=== PATIENT | female | born 1940 | race Caucasian/White ===

== ENCOUNTER 2019-02-24 13:53 | Inpatient (IN) | payer OTHER, MEDICAID ==
[~2019-02-24] VITALS: Ht 165.1 cm; Wt 63.5 kg
[2019-02-24 14:29] VITALS: BP 126/96
[2019-02-24] MEDS ORDERED: MEMA5TAB PO (14:38)
[2019-02-24] MEDS ORDERED: LISI30TA6 PO (14:38)
[2019-02-24] MEDS ORDERED: ASPI-1718 PO (14:38)
[2019-02-24] MEDS ORDERED: SERT25TA PO (14:38)
[2019-02-24] MEDS ORDERED: LEVO0.133 PO (14:38)
[2019-02-24] MEDS ORDERED: OLAN2.5T1 PO ×2 (14:38)
[2019-02-24] MEDS ORDERED: DONE5TAB6 PO (14:38)
[2019-02-24] MEDS ORDERED: OLANZapine 5 MG ODT SL ONE (15:10)
[2019-02-24 15:47] LABS: BASOPHILS % (AUTO) 0.8 % (0.0-2.0); EOSINOPHILS # (AUTO) 0.1 K/uL (0-0.4); EOSINOPHILS % (AUTO) 1.6 % (0.0-4.0); HEMATOCRIT 37.8 % (36-48); HEMOGLOBIN 12.6 g/dL (12.0-16.0); LYMPHOCYTES # (AUTO) 1.4 K/uL (2.5-16.5); LYMPHOCYTES % (AUTO) 21.2 % (20.5-51.1); MEAN CORPUSCULAR HEMOGLOBIN 30 pg (27-31); MEAN CORPUSCULAR HGB CONC 33 g/dL (33-37); MEAN CORPUSCULAR VOLUME 88.6 fL (80-94); MONOCYTES # (AUTO) 0.4 K/uL (0.8-1.0); MONOCYTES % (AUTO) 6.6 % (1.7-9.3); NEUTROPHILS # (AUTO) 4.5 K/uL (1.8-7.7); NEUTROPHILS % (AUTO) 69.8 % (42.2-75.2); PLATELET COUNT (AUTO) 197 K/uL (140-450); RED BLOOD CELL COUNT(AUTO) 4.27 MIL/uL (4.20-5.40); RED CELL DISTRIBUTION WIDTH 14.4 % (11.6-13.7); WHITE BLOOD COUNT (AUTO) 6.4 K/uL (4.8-10.8)
[2019-02-24 16:02] LABS: ANION GAP 14.3 (8-16); CARBON DIOXIDE 25.3 mmol/L (21-32); CHLORIDE 105 mmol/L (98-107); CREATININE 0.8 mg/dL (0.6-1.3); GLUCOSE 92 mg/dL (74-106); POTASSIUM 3.6 mmol/L (3.5-5.1); SODIUM SERUM 141 mmol/L (136-145); UREA NITROGEN, BLOOD 17 mg/dL (7-18)
[2019-02-24 16:08] LABS: ALBUMIN 3.7 g/dL (3.4-5.0); ASPARTATE AMINOTRANSFERASE 10 U/L (15-37); TOTAL BILIRUBIN 0.5 mg/dL (0.0-1.0)
[2019-02-24 16:30] LABS: APPEARANCE,URINE CLEAR (CLEAR); BILIRUBIN,URINE NEGATIVE (NEGATIVE); BLOOD, URINE 1+ (NEGATIVE); COLOR,URINE YELLOW (YELLOW); LEUKOCYTE ESTERASE ,URINE NEGATIVE (NEGATIVE); NITRITE, URINE NEGATIVE (NEGATIVE); PH,URINE 5.5 (5.0-9.0); UGLUCOSE NEGATIVE (NEGATIVE)
[2019-02-24 16:38] LABS: RBC,URINE 0-5 /HPF (0-5); WBC,URINE 0-5 /HPF (0-5)
[2019-02-24] MEDS: NACL 0.9% 1,000 ML IV SCH (17:06)
[2019-02-24] MEDS ORDERED: ONDANSETRON 4 MG/2 ML VIAL IVP PRN (17:10)
[2019-02-24] MEDS ORDERED: ACETAMINOPHEN 325 MG TAB PO PRN (17:10)
[2019-02-24] MEDS ORDERED: MELATONIN 3 MG TAB PO PRN (17:10)
[2019-02-24] MEDS ORDERED: MEDICATION REC. PHARMACY CONS. 1 EA MISC MC PRN (17:10)
[2019-02-24] MEDS ORDERED: HYDROcodone/APAP 7.5/325 MG 1 TAB PO PRN (17:10)
[2019-02-24 18:59] LABS: BARBITURATE, URINE NEG. ng/ml (NEG <=200); BENZODIAZEPINE, URINE NEG. ng/mL (NEG <=200); CANNABINOID, URINE NEG. ng/mL (NEG <=50); COCAINE, URINE NEG. ng/mL (NEG <=300); OPIATE, URINE NEG. ng/mL (NEG <=2000); PHENCYCLIDINE SCREEN,URINE NEG. ng/mL (NEG <=25)
[2019-02-24 19:15] VITALS: BP 137/47
[2019-02-24 19:30] LABS: PROTHROMBIN TIME 10.4 secs (10.8-13.4)
[2019-02-24 19:42] LABS: FREE T4 (FREE THYROXINE) 1.31 ng/dL (0.76-1.46); PHOSPHORUS 3.9 mg/dL (2.5-4.9); THYROID STIMULATING HORMONE 5.1 uIU/mL (0.34-3.74)
[2019-02-24] MEDS: DOCUSATE SODIUM 100 MG GELCAP PO SCH (21:10)
[2019-02-24] MEDS: MEMANTINE 10 MG TAB PO SCH (21:10)
[2019-02-24] MEDS: DONEPEZIL 10 MG TAB PO SCH (21:10)
[2019-02-24] MEDS: OLANZapine 2.5 MG TAB PO SCH (21:11)
[2019-02-25 00:25] VITALS: BP 135/65
[2019-02-25] MEDS: LEVOTHYROXINE 0.025 MG TAB PO SCH (06:26)
[2019-02-25] MEDS: LEVOTHYROXINE 0.112 MG TAB PO SCH (06:26)
[2019-02-25 06:34] LABS: BASOPHILS # (AUTO) 0.1 K/uL (0.00-0.22); EOSINOPHILS # (AUTO) 0.2 K/uL (0-0.4); EOSINOPHILS % (AUTO) 3.7 % (0.0-4.0); HEMATOCRIT 35.5 % (36-48); HEMOGLOBIN 11.8 g/dL (12.0-16.0); LYMPHOCYTES # (AUTO) 1.4 K/uL (2.5-16.5); LYMPHOCYTES % (AUTO) 28.6 % (20.5-51.1); MEAN CORPUSCULAR HEMOGLOBIN 30 pg (27-31); MEAN CORPUSCULAR HGB CONC 33 g/dL (33-37); MEAN CORPUSCULAR VOLUME 88.8 fL (80-94); MONOCYTES # (AUTO) 0.4 K/uL (0.8-1.0); NEUTROPHILS # (AUTO) 2.9 K/uL (1.8-7.7); NEUTROPHILS % (AUTO) 57.7 % (42.2-75.2); PLATELET COUNT (AUTO) 179 K/uL (140-450); RED CELL DISTRIBUTION WIDTH 14.4 % (11.6-13.7)
[2019-02-25 06:50] LABS: ANION GAP 13.2 (8-16); CARBON DIOXIDE 23.5 mmol/L (21-32); CHLORIDE 108 mmol/L (98-107); CREATININE 0.7 mg/dL (0.6-1.3); GLUCOSE 91 mg/dL (74-106); POTASSIUM 3.7 mmol/L (3.5-5.1); SODIUM SERUM 141 mmol/L (136-145); UREA NITROGEN, BLOOD 25 mg/dL (7-18)
[2019-02-25 06:56] LABS: MAGNESIUM 2.1 mg/dL (1.8-2.4); PHOSPHORUS 4.4 mg/dL (2.5-4.9)
[2019-02-25 08:00] VITALS: BP 125/41
[2019-02-25] MEDS ORDERED: LEVOTHYROXINE SODIUM PO SCH (09:00)
[2019-02-25] MEDS: LISINOPRIL 10 MG TAB PO SCH (09:00)
[2019-02-25] MEDS: DOCUSATE SODIUM 100 MG GELCAP PO SCH ×2 (09:15→21:45)
[2019-02-25] MEDS: OLANZapine 2.5 MG TAB PO SCH ×2 (09:15→21:45)
[2019-02-25] MEDS: FAMOTIDINE 20 MG TAB PO SCH (09:15)
[2019-02-25] MEDS: SERTRALINE 50 MG TAB PO SCH (09:15)
[2019-02-25] MEDS: ASPIRIN 81 MG TAB.CHEW PO SCH (09:15)
[2019-02-25] MEDS: MEMANTINE 10 MG TAB PO SCH ×2 (09:15→21:45)
[2019-02-25 09:41] LABS: CHOL/HDL RATIO 5.2 (1-4.5)
[2019-02-25 12:00] VITALS: BP 127/64
[2019-02-25] MEDS: NACL 0.9% 1,000 ML IV SCH (13:21)
[2019-02-25] MEDS ORDERED: ALBUTEROL SULFATE/IPRATROPIU 3 ML SOL IH PRN (14:50)
[2019-02-25 16:00] VITALS: BP 151/45
[2019-02-25 20:00] VITALS: BP 136/62
[2019-02-25] MEDS: DONEPEZIL 10 MG TAB PO SCH (21:46)
[2019-02-26] MEDS: LORazepam 0.5 MG TAB PO PRN ×2 (01:43→09:00)
[2019-02-26 04:00] VITALS: BP 130/55
[2019-02-26] MEDS: LEVOTHYROXINE 0.025 MG TAB PO SCH (06:34)
[2019-02-26] MEDS: LEVOTHYROXINE 0.112 MG TAB PO SCH (06:34)
[2019-02-26 06:41] LABS: BASOPHILS # (AUTO) 0.1 K/uL (0.00-0.22); BASOPHILS % (AUTO) 1.1 % (0.0-2.0); EOSINOPHILS # (AUTO) 0.2 K/uL (0-0.4); EOSINOPHILS % (AUTO) 3.6 % (0.0-4.0); HEMATOCRIT 35.6 % (36-48); HEMOGLOBIN 11.8 g/dL (12.0-16.0); LYMPHOCYTES # (AUTO) 1.3 K/uL (2.5-16.5); LYMPHOCYTES % (AUTO) 27.2 % (20.5-51.1); MEAN CORPUSCULAR HEMOGLOBIN 30 pg (27-31); MEAN CORPUSCULAR HGB CONC 33 g/dL (33-37); MEAN CORPUSCULAR VOLUME 89.3 fL (80-94); MONOCYTES # (AUTO) 0.5 K/uL (0.8-1.0); MONOCYTES % (AUTO) 10.4 % (1.7-9.3); NEUTROPHILS # (AUTO) 2.7 K/uL (1.8-7.7); NEUTROPHILS % (AUTO) 57.7 % (42.2-75.2); PLATELET COUNT (AUTO) 163 K/uL (140-450); RED BLOOD CELL COUNT(AUTO) 3.98 MIL/uL (4.20-5.40); RED CELL DISTRIBUTION WIDTH 14.5 % (11.6-13.7); WHITE BLOOD COUNT (AUTO) 4.7 K/uL (4.8-10.8)
[2019-02-26 08:00] VITALS: BP 139/55
[2019-02-26 08:02] LABS: ANION GAP 12.3 (8-16); CARBON DIOXIDE 27.5 mmol/L (21-32); CHLORIDE 106 mmol/L (98-107); CREATININE 0.7 mg/dL (0.6-1.3); GLUCOSE 97 mg/dL (74-106); POTASSIUM 3.8 mmol/L (3.5-5.1); SODIUM SERUM 142 mmol/L (136-145); UREA NITROGEN, BLOOD 18 mg/dL (7-18)
[2019-02-26] MEDS: MEMANTINE 10 MG TAB PO SCH (08:59)
[2019-02-26] MEDS ORDERED: ATORVASTATIN 20 MG TAB PO SCH (09:00)
[2019-02-26] MEDS: LISINOPRIL 10 MG TAB PO SCH (09:00)
[2019-02-26] MEDS: OLANZapine 2.5 MG TAB PO SCH (09:01)
[2019-02-26] MEDS: SERTRALINE 50 MG TAB PO SCH (09:02)
[2019-02-26] MEDS: ASPIRIN 81 MG TAB.CHEW PO SCH (09:02)
[2019-02-26] MEDS: DOCUSATE SODIUM 100 MG GELCAP PO SCH (09:04)
[2019-02-26] MEDS: FAMOTIDINE 20 MG TAB PO SCH (09:04)
[2019-02-26] MEDS ORDERED: FAMO-90 PO (13:13)
[2019-02-26] MEDS ORDERED: ATOR20TA PO (13:13)
[2019-02-26] MEDS ORDERED: MELA5TAB6 PO (13:13)
[2019-02-26] MEDS ORDERED: LISI30TA6 PO (13:13)
[2019-02-26] MEDS ORDERED: ALBU3SOL83 IH (13:18)
== END 2019-02-26 16:49 | DRG 640 ==
LOC: MED 13:53 → MTU 17:41
PROVIDERS: ADMIT General Practice; ATTEND General Practice
DX: E86.0 Dehydration (principal); G93.41 Metabolic encephalopathy; J43.9 Emphysema, unspecified; F31.9 Bipolar disorder, unspecified; G30.9 Alzheimer's disease, unspecified; F02.80 Dementia in other diseases classified elsewhere, unspecified severity, without behavioral disturbance, psychotic disturbance, mood disturbance, and anxiety; F20.9 Schizophrenia, unspecified; I10 Essential (primary) hypertension; E89.0 Postprocedural hypothyroidism; F17.210 Nicotine dependence, cigarettes, uncomplicated; E78.5 Hyperlipidemia, unspecified; Z90.710 Acquired absence of both cervix and uterus
CPT/HCPCS: 36415; 51702; 70450; 71045; 71250; 80048; 80053; 80305; 81001; 82140; 83036; 83735; 83880; 84100; 84439; 84443; 84484; 85025; 85610; 85730; 87081; 97110; 97116; 97161-GP; 97530; 99285; J1644; J7030; Q0092

== ENCOUNTER 2019-08-10 19:54 | Inpatient (IN) | payer OTHER, MEDICAID ==
[~2019-08-10] VITALS: Ht 157.5 cm; Wt 67.1 kg
[~2019-08-10 19:54] MED LIST: ALBU3SOL83 IH; ASPI-1822 PO; ATOR20TA PO; DONE5TAB6 PO; FAMO-90 PO; LEVO0.133 PO; LISI30TA6 PO; MELA5TAB6 PO; MEMA5TAB PO; OLAN2.5T1 PO; SERT25TA PO
--- NOTE | 2019-08-10 19:56 | NUR ---
PT CODY BLS. TAKEN TO BED 8
[2019-08-10 19:59] VITALS: BP 168/110
[2019-08-10] MEDS ORDERED: ACET-2619 PO (20:10)
[2019-08-10] MEDS ORDERED: CETI10TA71 PO (20:10)
--- NOTE | 2019-08-10 20:23 | NUR ---
Dr. Urrutia examining patient.
[2019-08-10] MEDS ORDERED: ONDANSETRON 4 MG/2 ML VIAL IVP ONE ×2 (20:25→22:30)
[2019-08-10] MEDS ORDERED: MORPHINE SULFATE 2 MG/ML SYR IVP ONE (20:25)
--- NOTE | 2019-08-10 20:29 | NUR ---
XR AT BEDSIDE.
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
[2019-08-10 21:17] LABS: BASOPHILS # (AUTO) 0.1 K/uL (0.00-0.22); BASOPHILS % (AUTO) 1.2 % (0.0-2.0); EOSINOPHILS # (AUTO) 0.2 K/uL (0-0.4); EOSINOPHILS % (AUTO) 3.2 % (0.0-4.0); HEMATOCRIT 36.2 % (36-48); HEMOGLOBIN 12.1 g/dL (12.0-16.0); LYMPHOCYTES # (AUTO) 0.9 K/uL (2.5-16.5); LYMPHOCYTES % (AUTO) 15.2 % (20.5-51.1); MEAN CORPUSCULAR HEMOGLOBIN 30 pg (27-31); MEAN CORPUSCULAR HGB CONC 33 g/dL (33-37); MEAN CORPUSCULAR VOLUME 88.7 fL (80-94); MONOCYTES # (AUTO) 0.4 K/uL (0.8-1.0); MONOCYTES % (AUTO) 6.9 % (1.7-9.3); NEUTROPHILS # (AUTO) 4.3 K/uL (1.8-7.7); NEUTROPHILS % (AUTO) 73.5 % (42.2-75.2); PLATELET COUNT (AUTO) 189 K/uL (140-450); RED BLOOD CELL COUNT(AUTO) 4.08 MIL/uL (4.20-5.40); RED CELL DISTRIBUTION WIDTH 14.4 % (11.6-13.7); WHITE BLOOD COUNT (AUTO) 5.8 K/uL (4.8-10.8)
[2019-08-10 21:24] LABS: ANION GAP 11.8 (8-16); CARBON DIOXIDE 27.1 mmol/L (21-32); CHLORIDE 107 mmol/L (98-107); CREATININE 0.7 mg/dL (0.6-1.3); GLUCOSE 113 mg/dL (74-106); POTASSIUM 3.9 mmol/L (3.5-5.1); SODIUM SERUM 142 mmol/L (136-145); UREA NITROGEN, BLOOD 25 mg/dL (7-18)
[2019-08-10] MEDS ORDERED: MORPHINE SULFATE 4 MG/ML SYR IVP ONE (22:30)
[2019-08-10] MEDS ORDERED: ONDANSETRON 4 MG/2 ML VIAL IM/IVP PRN (22:45)
[2019-08-10] MEDS ORDERED: DOCUSATE SODIUM 100 MG GELCAP PO PRN (22:45)
[2019-08-10] MEDS ORDERED: ACETAMINOPHEN 325 MG TAB PO PRN (22:45)
--- NOTE | 2019-08-10 22:55 | NUR ---
Dr. Cee examining patient.
[2019-08-10] MEDS ORDERED: MORPHINE SULFATE 4 MG/ML SYR IVP PRN (23:30)
[2019-08-10] MEDS ORDERED: MECLIZINE 25 MG TAB PO PRN (23:45)
[2019-08-11] VITALS: BP 149/74
--- NOTE | 2019-08-11 | NUR ---
Patient will be admitted to care of DR. ALVAREZ. Admited to M/S. Will go to room 123A. Belongings list completed. Report to ESTELLE LANGFORD.
[2019-08-11 00:25] LABS: CHOL/HDL RATIO 4.1 (1-4.5); FREE T4 (FREE THYROXINE) 1.11 ng/dL (0.76-1.46); MAGNESIUM 2.1 mg/dL (1.8-2.4); PHOSPHORUS 3.3 mg/dL (2.5-4.9); THYROID STIMULATING HORMONE 3.59 uIU/mL (0.34-3.74)
[2019-08-11 00:59] LABS: APPEARANCE,URINE CLOUDY (CLEAR); BILIRUBIN,URINE NEGATIVE (NEGATIVE); BLOOD, URINE 2+ (NEGATIVE); COLOR,URINE YELLOW (YELLOW); LEUKOCYTE ESTERASE ,URINE NEGATIVE (NEGATIVE); NITRITE, URINE NEGATIVE (NEGATIVE); UGLUCOSE NEGATIVE (NEGATIVE)
--- NOTE | 2019-08-11 01:00 | NUR ---
PT WAS TURNED AND CHANGED IN BED NO S/S OF PAIN IR DISTRESS NOTED.
[2019-08-11 01:37] LABS: RBC,URINE 0-5 /HPF (0-5); WBC,URINE 0-5 /HPF (0-5)
--- NOTE | 2019-08-11 03:46 | NUR ---
PT BROUGHT DOWN TO RADIOLOGY FOR CT OF HEAD AND CT OF ABDOMEN AND PELVIS.
[2019-08-11] MEDS ORDERED: cefTRIAXone 1,000 MG VIAL ONE (05:06)
[2019-08-11] MEDS ORDERED: LEVOTHYROXINE 0.025 MG TAB ONE (05:08)
[2019-08-11] MEDS ORDERED: LEVOTHYROXINE 0.112 MG TAB ONE (05:09)
[2019-08-11] MEDS: DEXT 5% /NACL 0.9% 1,000 ML IV SCH ×3 (05:20→23:44)
[2019-08-11] MEDS: LEVOTHYROXINE 0.025 MG TAB PO SCH (05:23)
[2019-08-11] MEDS: LEVOTHYROXINE 0.112 MG TAB PO SCH (05:23)
[2019-08-11 06:15] LABS: ANION GAP 12.5 (8-16); CARBON DIOXIDE 29.3 mmol/L (21-32); CHLORIDE 107 mmol/L (98-107); CREATININE 0.7 mg/dL (0.6-1.3); GLUCOSE 129 mg/dL (74-106); POTASSIUM 3.8 mmol/L (3.5-5.1); SODIUM SERUM 145 mmol/L (136-145); UREA NITROGEN, BLOOD 23 mg/dL (7-18)
[2019-08-11] MEDS ORDERED: LEVOTHYROXINE 0.075 MG TAB PO SCH (06:30)
[2019-08-11] MEDS ORDERED: LEVOTHYROXINE 0.112 MG TAB PO SCH (06:30)
[2019-08-11 07:00] LABS: BASOPHILS % (AUTO) 0.5 % (0.0-2.0); EOSINOPHILS % (AUTO) 0.4 % (0.0-4.0); HEMATOCRIT 34.5 % (36-48); HEMOGLOBIN 11.7 g/dL (12.0-16.0); LYMPHOCYTES # (AUTO) 0.6 K/uL (2.5-16.5); LYMPHOCYTES % (AUTO) 5.5 % (20.5-51.1); MEAN CORPUSCULAR HEMOGLOBIN 30 pg (27-31); MEAN CORPUSCULAR HGB CONC 34 g/dL (33-37); MEAN CORPUSCULAR VOLUME 89.8 fL (80-94); MONOCYTES # (AUTO) 0.5 K/uL (0.8-1.0); MONOCYTES % (AUTO) 4.8 % (1.7-9.3); NEUTROPHILS % (AUTO) 88.8 % (42.2-75.2); PLATELET COUNT (AUTO) 171 K/uL (140-450); RED BLOOD CELL COUNT(AUTO) 3.84 MIL/uL (4.20-5.40); RED CELL DISTRIBUTION WIDTH 14.2 % (11.6-13.7); WHITE BLOOD COUNT (AUTO) 10.2 K/uL (4.8-10.8)
--- NOTE | 2019-08-11 07:23 | NUR ---
RECEIVED PATIENT FROM SOFTWARE EDUCATOR NURSE FOR CONTINUITY OF CARE. PATIENT IS ASLEEP. [place] SPEAKING. RESPIRATIONS EVEN AND UNLABORED, ROOM AIR. VISIBLE CHEST RISE NOTED. ON TELE MONITORING. ABDOMEN SOFT, ROUND, NONTENDER. SKIN WARM, DRY, AND INTACT. IV IN THE RIGHT AC G20, RUNNING D51.2NS AT 80 ML/HR. LEFT HAND, G22, SALINE LOCK. PATIENT IS INCONTINENT. RIGHT HIP FRACTURE. NPO EXCEPT MEDS AT THIS TIME. PATIENT IS BEDBOUND. STANDARD ISOLATION. BED IN LOW POSITION. CALL LIGHT IS WITHIN REACH. WILL CONTINUE TO MONITOR.
[2019-08-11 08:00] VITALS: BP 172/79
--- NOTE | 2019-08-11 08:22 | NUR ---
RECEIVED PT FROM ROSETTE ER NURSE AT BEDSIDE FOR CONTINUITY OF CARE, PT IN STABLE CONDITION. PT V/S FOLLOWS: T 98.7 P 18 R 18 B/P 149/74 02 97%. PT AOX1 ON ROOM AIR SHE HAS 2 IV SITES L HAND 22 G AND RIGHT HAND HAND 22G . PT HAS SKIN TEAR ON RIGHT ELBOW AND LEFT HAND. PT WAS GIVEN PAIN MEDS IN ER. REPORT GIVEN BY ROSETTE AT BEDSIDE.
[2019-08-11] MEDS: SERTRALINE 50 MG TAB PO SCH (09:14)
[2019-08-11] MEDS: LISINOPRIL 20 MG TAB PO SCH (09:16)
[2019-08-11] MEDS: MEMANTINE 10 MG TAB PO SCH ×2 (09:16→20:35)
[2019-08-11] MEDS: FAMOTIDINE 20 MG TAB PO SCH (09:17)
[2019-08-11] MEDS: OLANZapine 2.5 MG TAB PO SCH ×2 (09:18→20:36)
--- NOTE | 2019-08-11 09:18 | NUR ---
GIVEN MORNING MEDICATIONS PO. EXPLAINED TO PATIENT MEDS AND SIDE EFFECTS. PATIENT VERBALIZED UNDERSTANDING. BED IN LOW POSITION. CALL LIGHT IS WITHIN REACH. WILL CONTINUE TO MONITOR
[2019-08-11] MEDS ORDERED: BACITRACIN 50000 UNITS/1 VIAL ONE (09:52)
[2019-08-11] MEDS ORDERED: LIDOCAINE/EPI MPF 1%1:200000 30 ML VIAL INJ ONE (09:52)
--- NOTE | 2019-08-11 10:20 | NUR ---
PATIENT IS OFF TO OR FOR SURGERY ACCOMPANIED BY 2 OR NURSES.
[2019-08-11] MEDS ORDERED: DEXAMETHASONE 4 MG/ML VIAL ONE (10:30)
[2019-08-11] MEDS ORDERED: ONDANSETRON 4 MG/2 ML VIAL ONE (10:30)
[2019-08-11] MEDS ORDERED: GLYCOPYRROLATE 0.2 MG/ML VIAL ONE (10:30)
[2019-08-11] MEDS ORDERED: fentaNYL 0.05 MG/ML VIAL ONE (10:30)
[2019-08-11] MEDS ORDERED: ROCURONIUM 50 MG/5 ML VIAL IV ONE (10:30)
[2019-08-11] MEDS ORDERED: ePHEDrine 50 MG/ML VIAL ONE (10:30)
[2019-08-11] MEDS ORDERED: KETOROLAC 30 MG/ML VIAL ONE (10:30)
[2019-08-11] MEDS ORDERED: SEVOFLURANE 250 ML BTL INH ONE (10:30)
[2019-08-11] MEDS ORDERED: PROPOFOL 200 MG/20 ML VIAL IV ONE (10:30)
--- NOTE | 2019-08-11 13:07 | NUR ---
PATIENT HAS BEEN SCREENED AND CATEGORIZED MODERATE NUTRITION RISK. PATIENT WILL BE SEEN WITHIN 3-5 DAYS OF ADMISSION. 08/13/19 08/15/[address]
--- NOTE | 2019-08-11 13:50 | NUR ---
PT BACK FROM SURGERY.
--- NOTE | 2019-08-11 14:18 | NUR ---
GIVEN REPORT TO ESTELLE GARCIA, FOR CONTINUITY OF CARE.
--- NOTE | 2019-08-11 14:20 | NUR ---
RECEIVED PT FROM ESTELLE BRAUN, FOR CONTINUITY OF CARE. PT JUST HAD R TROCHANTERIC HIP NAILING SURGERY. VS CHECKED Q15 MINS. VS ARE STABLE. PT NOT C/O PAIN AT THIS TIME. R HIP IS DRESSED WITH A WHITE DRESSING, DRY AND INTACT.
--- NOTE | 2019-08-11 14:24 | NUR ---
DC [age] YRS OLD FEMALE PATIENT WAS ADMITTED FROM [facility], WITH A DX OF: S/P FALL , RT HIP FRACTURE . PT HAS A HX OF THYROID CA, HTN, GERD, DEMENTIA HYPOTHYROIDISM, AND SCHIZOPHRENIA. RT HIP XRAY SHOWED FRACTURE , ADMINISTERED PAIN CONTROLLED CONSULTED WITH ORTHOPEDIC DR SHIPMAN . PT IS HAVING SURGERY ORIF WITH DR SHIPMAN AT THIS TIME CM TO FOLLOW. Addendum: 08/16/19 at 1025 by Tasha Merrill CM 0830: RECEIVED AN ORDER FOR SNF EVAL FOR PT. CONTACTED DEEPALI MCGOVERN OF [employer] HOWEVER I WAS NOT ABLE TO LEAVE MESSAGE, VOICEMAIL WAS NOT SET UP. WILL FOLLOW UP. REFERRAL SENT TO [facility]AC[facility]. Addendum: 08/16/19 at 1026 by Tasha Merrill CM PER KEYLA ROBLES, THEY ARE ABLE TO TAKE THE PATIENT. CONTACTED DEEPALI MCGOVERN OF [employer], NO ANSWER. UNABLE TO LEAVE MESSAGE.. WILL FOLLOW UP. Addendum: 08/16/19 at 1030 by Tasha Merrill CM CONTACTED ADAN PATTERSON AT [phone] REGARDING DC PLAN, NO ANSWER. LEFT MESSAGE. Addendum: 08/16/19 at 1037 by Tasha Merrill RECEIVED A CALL FROM ADAN PATTERSON, PATIENT'S MEDICAL DECISION MAKER. INFORMED HIM OF THE DC PLAN AND IS IN AGREEMENT. I INFORMED HIM WELL, THAT I HAVE AN ACCEPTING FACILITY ALREADY AND THAT I AM JUST WAITING FOR A GO SIGNAL FROM THE INSURANCE. Addendum: 08/16/19 at 1330 by Tasha Merrill CM PER ARA COORDINATOR, DEEPALI MITTALIL IS NO LONGER WITH [employer]. SHE PROVIDED ME WITH DEEPALI GRANT'S CONTACT INFO [phone]. CONTACTED THE PROVIDED NUMBER, ABLE TO SPEAK TO DEEPALI GRANT AND SHE CONFIRMED THAT DEEPALI MCGOVERN IS NO LONGER WITH THE COMPANY. SHE STATED MAY USE AUTH NUMBER [id number] FOR BOTH TRANSPORT ([facility]) AND SNF. CONTACTED [facility] AT [phone] REGARDING VERBAL AUTH. SHE STATED PATIENT CAN GO TO ROOM 31C UNDER DR. GILLIS. CONTACTED [facility] [phone], ABLE TO SPEAK TO RICARDO. MODERN GREEK STUDIES PROFESSOR WILL BE AT 1830. PRIMARY RN JODIE, CHARGE NURSE AND DR. CURIEL MADE AWARE. CONTACTED PATIENT'S SON IN LAW ADAN PATTERSON AT [phone], NO ANSWER. LEFT MESSAGE. Addendum: 08/16/19 at 1344 by Tasha Merrill CM RECEIVED A CALL FROM PRIMARY RN JODIE, STATING THAT [facility] IS ABLE TO CALL HIM TO CHANGE THE MODERN GREEK STUDIES PROFESSOR TIME TO 1500. RECEIVED A CALL BACK FROM ADAN PATTERSON, INFORMED HIM THAT PATIENT WILL BE DISCHARGING TODAY TO [facility]. PROVIDED HIM WITH THE ROOM NUMBER, ADDRESS AND PHONE NUMBER OF [facility]. I ALSO INFORMED HIM OF THE MODERN GREEK STUDIES PROFESSOR TIME AND IS IN AGREEMENT. Addendum: 08/16/19 at 1351 by Tasha Merrill CM [facility] MADE AWARE OF PATIENT DISCHARGING TO [facility].
[2019-08-11 16:00] VITALS: BP 134/59
--- NOTE | 2019-08-11 16:21 | NUR ---
Mica Patcher Note: Basic Screen: Yes High Risk DC Screen Yes Name: CESAR PATTERSON Home Tel: FAMILY Relationship: [phone] Pre-Admission Living Arrangements: Other Other: [facility] Prior ADL Independent Current Home Health Name/Tel: N/A Current DME/02 Name/Tel: N/A Current Hospice Name/Tel: N/A Current Dialysis Name/Tel: N/A Healthcare Decision Maker: Patient Advance Directive No Physician Orders for Life Sustaining Treatment Form No Patient/Family Have Educational Needs No Teaching Tools: Verbal Participation Level: Active Needs Additional Education: No Discipline: Case Mgt/Social Svcs Other: [facility] Will require assistance post discharge: No Referred to [facility]: No Tentative Discharge Plan Summary: Patient is a 79-year-old female admitted for fall/right hip fracture. Patient has PMHX of alzheimer's, dementia, bipolar disorder, schizophrenia, HTN, hypohyroid, hypertension, hyperlipedemia, GERD, and hypothyroidism. Patient was admitted from [facility]. SW contacted Gwen Childs in admissions at [facility] [phone]. Per Gwen Childs, patient is ambulatory but requires assistance with all other ADLs. Patient is in memory care unit and is able to communicate, although she is not alert/oriented to place and time. Patient's healthcare decision maker is Cesar Patterson [phone]. Tentative discharge plan is for patient to return to [facility] when patient is medically stable. No further needs identified. Signature: SULTANA Timmons Date: Aug 12, 2019 Time: 09:05
--- NOTE | 2019-08-11 16:52 | NUR ---
BEDSIDE SWALLOW EVAL COMPLETED, PT WAS ABLE TO SWALLOW APPLE SAUCE AND THIN WATER WITHOUT ANY ISSUES.
--- NOTE | 2019-08-11 17:06 | NUR ---
PT ABLE TO URINATE A LARGE AMOUNT AFTER SURGERY, WITHOUT LUGO.
--- NOTE | 2019-08-11 18:30 | NUR ---
PT SLEEPING, DOES NOT WANT TO EAT DINNER AT THIS TIME.
--- NOTE | 2019-08-11 19:15 | NUR ---
PT ENDORSED TO ACCOUNTING SYSTEMS MANAGER IN STABLE CONDITION. R HIP SURGICAL DRESSING IS DRY AND INTACT.
--- NOTE | 2019-08-11 19:20 | NUR ---
RECEIVE DPT IN STABLE CONDITION FROM AM NURSE. PT IS ASLEEP. RESPIRATION EVEN AND UNLABORED. MED SURG PT. BEDREST. WITH NO S/S OF ANY DISCOMFORT /PAIN NOTED. S/P TROCHANTER HIP NAILING RIGHT, WITH LARGE DRESSING CLEAN AND DRY ON THE RT HIP. HAS IVF INFUSING WELL ON THE RT AC G#20. HL ON THE LT HAND G#22. BED ON LOW POSITION. FREQ ROUNDS NEEDED . CALL LIGHT PLACED WITHIN EASY REACH. WILL CONTINUE TO MONITOR.
[2019-08-11 20:00] VITALS: BP 127/44
[2019-08-11] MEDS: DONEPEZIL 10 MG TAB PO SCH (20:35)
[2019-08-11] MEDS ORDERED: CRUSHER, PILL MC ONE (20:37)
--- NOTE | 2019-08-11 21:00 | NUR ---
PT WAS TURNED TO LEFT SIDE WITH PILLOW SUPPORTING THE RT HIP.
--- NOTE | 2019-08-11 23:00 | NUR ---
PT IS ASLEEP. NO S/S OF ANY PAIN NOTED. WILL CONTINUE TO MONITOR.
[2019-08-12] VITALS: BP 116/68
--- NOTE | 2019-08-12 01:00 | NUR ---
PT REPOSITIONED FOR COMFORT. NO C/O ANY PAIN NOTED.
--- NOTE | 2019-08-12 03:30 | NUR ---
MADE ROUNDS. PT IS ASLEEP. NO S/S OF ANY DISCOMFORT NOR PAIN NOTED.
[2019-08-12] MEDS: DEXT 5% /NACL 0.9% 1,000 ML IV SCH ×2 (04:00→21:27)
--- NOTE | 2019-08-12 05:00 | NUR ---
MADE ROUNDS. PT SLEEPING. NO S/S OF PAIN NOTED.
[2019-08-12 06:11] LABS: T4 (THYROXINE) 7.2 ug/dL (4.5-12.0)
[2019-08-12 06:19] LABS: BASOPHILS % (AUTO) 0.3 % (0.0-2.0); EOSINOPHILS % (AUTO) 0.2 % (0.0-4.0); HEMATOCRIT 28.6 % (36-48); HEMOGLOBIN 9.6 g/dL (12.0-16.0); LYMPHOCYTES # (AUTO) 0.7 K/uL (2.5-16.5); LYMPHOCYTES % (AUTO) 8.7 % (20.5-51.1); MEAN CORPUSCULAR HEMOGLOBIN 30 pg (27-31); MEAN CORPUSCULAR HGB CONC 34 g/dL (33-37); MEAN CORPUSCULAR VOLUME 90.6 fL (80-94); MONOCYTES # (AUTO) 0.7 K/uL (0.8-1.0); MONOCYTES % (AUTO) 8.6 % (1.7-9.3); NEUTROPHILS # (AUTO) 6.4 K/uL (1.8-7.7); NEUTROPHILS % (AUTO) 82.2 % (42.2-75.2); PLATELET COUNT (AUTO) 138 K/uL (140-450); RED BLOOD CELL COUNT(AUTO) 3.15 MIL/uL (4.20-5.40); RED CELL DISTRIBUTION WIDTH 14.1 % (11.6-13.7); WHITE BLOOD COUNT (AUTO) 7.8 K/uL (4.8-10.8)
[2019-08-12 06:34] LABS: CARBON DIOXIDE 25.8 mmol/L (21-32); CHLORIDE 110 mmol/L (98-107); CREATININE 0.7 mg/dL (0.6-1.3); GLUCOSE 133 mg/dL (74-106); POTASSIUM 3.8 mmol/L (3.5-5.1); SODIUM SERUM 144 mmol/L (136-145); UREA NITROGEN, BLOOD 16 mg/dL (7-18)
[2019-08-12 06:43] LABS: MAGNESIUM 1.9 mg/dL (1.8-2.4); PHOSPHORUS 2.5 mg/dL (2.5-4.9)
[2019-08-12] MEDS: LEVOTHYROXINE 0.025 MG TAB PO SCH (06:47)
[2019-08-12] MEDS: LEVOTHYROXINE 0.112 MG TAB PO SCH (06:47)
[2019-08-12] MEDS: HYDROcodone/APAP 7.5/325 MG 1 TAB PO PRN ×3 (06:57→21:18)
--- NOTE | 2019-08-12 07:24 | NUR ---
ENDORSED PT IN STABLE CONDITION TO AM NURSE .
--- NOTE | 2019-08-12 07:25 | NUR ---
RECEIVED REPORT FROM NIGHT NURSE, PT TRYING TO GET OUT OF BED, RE-ORIENTED PT, PT VERBALIZED UNDERSTANDING, PT STABLE, INTRODUCE SELF, UPDATE WHITE BOARD, PT HAS RAC 20 G RUNNING D5NS AT 80ML/H, BED ALARM ON, SAFETY MEASURES IN PLACE, CALL LIGHT WITHIN REACH.
[2019-08-12 08:00] VITALS: BP 137/47
[2019-08-12] MEDS: OLANZapine 2.5 MG TAB PO SCH ×2 (08:58→21:06)
[2019-08-12] MEDS: SERTRALINE 50 MG TAB PO SCH (08:59)
[2019-08-12] MEDS: LISINOPRIL 20 MG TAB PO SCH (09:00)
[2019-08-12] MEDS: MEMANTINE 10 MG TAB PO SCH ×2 (09:01→21:06)
[2019-08-12] MEDS: FAMOTIDINE 20 MG TAB PO SCH (09:01)
--- NOTE | 2019-08-12 09:06 | NUR ---
GAVE PT ORDERED MEDICATION, EDUCATION GIVEN, PT VERBALIZED UNDERSTANDING, PT IS STABLE, CALL LIGHT WITHIN REACH.
[2019-08-12] MEDS ORDERED: CALCIUM CARB/VIT-D 500 MG/200 IU 1 TAB PO SCH (11:15)
--- NOTE | 2019-08-12 11:30 | NUR ---
PT PULLED OUT IV, PT RE-ORIENTED TO STAY IN BED, PT STABLE, BED ALARM ON, WILL CONTINUE TO MONITOR, CALL LIGHT WITHIN REACH.
--- NOTE | 2019-08-12 12:01 | NUR ---
GAVE PT KAREEM PT IS CRYING SAYING HER RIGHT HIP HURTS, EDUCATION GIVEN, PT TOLERATED MEDICATION WELL, CALL LIGHT WITHIN REACH, SAFETY MEASURES IN PLACE.
--- NOTE | 2019-08-12 13:00 | NUR ---
PT ASLEEP IN BED, NO SIGNS OF DISTRESS NOTED, WILL CONTINUE TO MONITOR, CALL LIGHT WITHIN REACH.
--- NOTE | 2019-08-12 13:52 | NUR ---
*S.T. BEDSIDE SWALLOW EVAL COMPLETED* See report. Pt presents w/ adequate oropharyngeal swallow for textures given. Pt is able to self-feed w/ minimal assistance. No overt s/s aspiration observed. Recommend: 1) Continue mechanical soft diet, thin liquids okay. Straws okay. 2) Nsg to assist w/ tray set up to promote self-feeding 3) P.O. meds okay whole, one at a time. No further tx indicated at this time as pt does not present w/ clinical dysphagia. DC to nsg care at this time. D/w pt results/recs; endorsed to ESTELLE Ren at bedside. Time [id number]
--- NOTE | 2019-08-12 14:40 | NUR ---
RE-ORIENTED PT TO PLACE AND TIME, PT ATTEMPTED TO GET OUT OF BED, BED ALARM ON, WILL CONTINUE ROUNDING ON PT.
--- NOTE | 2019-08-12 19:15 | NUR ---
GAVE REPORT TO NIGHT NURSE FOR CONTINUITY OF CARE, PT IS STABLE.
--- NOTE | 2019-08-12 19:16 | NUR ---
RECEIVED PT IN STABLE CONDITION FROM AM NURSE FOR CONTINUITY OF CARE. AWAKE,ALERT ,ORIENTED X2. BEDREST. WITH DRESSING ON THE RIGHT HIP ,CLEAN AND DRY. HAS IVF INFUSING WELL ON THE RT WRIST G#22. CLEAR AND PATENT. PLAN OF CARE DISCUSSED AND NEED REINFORCEMENT DUE TO CONFUSION. BEDREST. BED ALARM ON FREQ ROUNDS. PLATE FITTER AILS UP X2,CALL LIGHT PLACED WITHIN EASY REACH. WILL CONTINUE TO MONITOR.
[2019-08-12] MEDS: DONEPEZIL 10 MG TAB PO SCH (21:05)
--- NOTE | 2019-08-12 21:18 | NUR ---
PT TOOK ALL NIGHT MEDICATIONS. THEN C/I PAIN ON THE RT HIP. MEDICATED WITH NORCO . WILL CONTINUE TO MONITOR.
--- NOTE | 2019-08-12 23:55 | NUR ---
PT LT HAND WITH BRUISES AND SKIN TEAR THAT ALREADY HAS SOME SCABS FORMING. DR. GUZMAN RESIDENT , MADE AWARE AND CAME ,CHECKED ON PT. .HE SAID JUST CLEAN THE LT HAND WITH NS ,PAT DRY AND KEEP OPEN TO AIR.
[2019-08-13] VITALS: BP 124/42
--- NOTE | 2019-08-13 01:00 | NUR ---
MADE ROUNDS. PT ASLEEP. NO S/S OF ANY DISCOMFORT/PAIN NOTED.
--- NOTE | 2019-08-13 03:00 | NUR ---
PT ASLEEP. NO S/S OF ANY PAIN NOTED. WILL CONTINUE TO MONITOR.
--- NOTE | 2019-08-13 05:00 | NUR ---
PT HAS BEEN REPOSITIONED FOR COMFORT . RT HIP DRESSING CLEAN AND DRY. NO BLEEDING NOTED.
[2019-08-13] MEDS: LEVOTHYROXINE 0.112 MG TAB PO SCH (05:39)
[2019-08-13] MEDS: HYDROcodone/APAP 7.5/325 MG 1 TAB PO PRN (05:39)
[2019-08-13] MEDS: LEVOTHYROXINE 0.025 MG TAB PO SCH (05:39)
[2019-08-13 06:17] LABS: BASOPHILS # (AUTO) 0.1 K/uL (0.00-0.22); BASOPHILS % (AUTO) 0.9 % (0.0-2.0); EOSINOPHILS # (AUTO) 0.4 K/uL (0-0.4); EOSINOPHILS % (AUTO) 6.3 % (0.0-4.0); HEMATOCRIT 25.9 % (36-48); HEMOGLOBIN 8.8 g/dL (12.0-16.0); LYMPHOCYTES # (AUTO) 1.1 K/uL (2.5-16.5); LYMPHOCYTES % (AUTO) 17.2 % (20.5-51.1); MEAN CORPUSCULAR HEMOGLOBIN 31 pg (27-31); MEAN CORPUSCULAR HGB CONC 34 g/dL (33-37); MEAN CORPUSCULAR VOLUME 90.1 fL (80-94); MONOCYTES # (AUTO) 0.7 K/uL (0.8-1.0); NEUTROPHILS # (AUTO) 4.3 K/uL (1.8-7.7); NEUTROPHILS % (AUTO) 65.6 % (42.2-75.2); PLATELET COUNT (AUTO) 121 K/uL (140-450); RED BLOOD CELL COUNT(AUTO) 2.87 MIL/uL (4.20-5.40); RED CELL DISTRIBUTION WIDTH 14.2 % (11.6-13.7); WHITE BLOOD COUNT (AUTO) 6.6 K/uL (4.8-10.8)
--- NOTE | 2019-08-13 06:30 | NUR ---
PT IS ASLEEP. NO S/S OF ANY DISCOMFORT NOTED.
[2019-08-13 06:50] LABS: ANION GAP 8.7 (8-16); CARBON DIOXIDE 28.9 mmol/L (21-32); CHLORIDE 109 mmol/L (98-107); CREATININE 0.6 mg/dL (0.6-1.3); GLUCOSE 117 mg/dL (74-106); POTASSIUM 3.6 mmol/L (3.5-5.1); SODIUM SERUM 143 mmol/L (136-145); UREA NITROGEN, BLOOD 16 mg/dL (7-18)
[2019-08-13 06:56] LABS: MAGNESIUM 1.8 mg/dL (1.8-2.4); PHOSPHORUS 2.5 mg/dL (2.5-4.9)
--- NOTE | 2019-08-13 07:30 | NUR ---
ENDORSED PT IN STABLE CONDITION TO AM NURSE FOR CONTINUITY OF CARE.
--- NOTE | 2019-08-13 07:32 | NUR ---
RECEIVED BEDSIDE REPORT FROM NIGHT NURSE. PATIENT IN BED, ASLEEP, EASILY AROUSABLE BY NAME OR TOUCH. SKIN WARM AND DRY TO TOUCH. INTRODUCED SELF. NO S/S OF DISTRESS NOTED. IV INTACT AND PATENT TO RIGHT WRIST. RIGHT HIP DRESSING INTACT AND DRY. BED IN LOW POSITION. BED ALARM ON. SAFETY MEASURES IN PLACE.
[2019-08-13 08:00] VITALS: BP 139/40
--- NOTE | 2019-08-13 09:35 | NUR ---
PATIENT IN BED, ASLEEP, EASILY AROUSABLE NAME OR TOUCH. SKIN WARM AND DRY TO TOUCH. NO S/S OF DISTRESS NOTED. BED IN LOW POSITION. SAFETY MEASURES IN PLACE. CALL LIGHT WITHIN REACH.
[2019-08-13] MEDS: OLANZapine 2.5 MG TAB PO SCH ×2 (10:16→21:27)
[2019-08-13] MEDS: CALCIUM CARB/VIT-D 500 MG/200 IU 1 TAB PO SCH (10:16)
[2019-08-13] MEDS: FAMOTIDINE 20 MG TAB PO SCH (10:16)
[2019-08-13] MEDS: MEMANTINE 10 MG TAB PO SCH ×2 (10:16→21:27)
[2019-08-13] MEDS: SERTRALINE 50 MG TAB PO SCH (10:18)
[2019-08-13] MEDS: LISINOPRIL 20 MG TAB PO SCH (10:18)
[2019-08-13] MEDS: DEXT 5% /NACL 0.9% 1,000 ML IV SCH (11:04)
--- NOTE | 2019-08-13 11:35 | NUR ---
PATIENT IN BED, OBSERVED TO BE VERY SLEEPY BUT EASILY AROUSABLE NAME OR TOUCH. SKIN WARM AND DRY TO TOUCH. NO S/S OF DISTRESS NOTED. BED IN LOW POSITION. SAFETY MEASURES IN PLACE. CALL LIGHT WITHIN REACH.
--- NOTE | 2019-08-13 12:30 | NUR ---
PATIENT IS AWAKE, ALERT, EATING LUNCH. NO S/S OF DISTRESS NOTED. PATIENT REMAINS STABLE. CALL LIGHT WITHIN REACH.
--- NOTE | 2019-08-13 14:30 | NUR ---
PATIENT IS IN BED, ASLEEP, EASILY AROUSABLE BY NAME OR TOUCH. NO S/S OF DISTRESS NOTED. BED IN LOW POSITION. BED ALARM ON. CALL LIGHT WITHIN REACH.
[2019-08-13 16:00] VITALS: BP 146/50
--- NOTE | 2019-08-13 17:00 | NUR ---
PATIENT IS AWAKE, VERBALLY RESPONSIVE, ORIENTED X2-3. PATIENT REQUESTED SNACKS, SNACKS GIVEN. NO S/S OF DISTRESS NOTED. WILL CONTINUE TO MONITOR. BED ALARM ON. SAFETY MEASURES IN PLACE.
--- NOTE | 2019-08-13 19:00 | NUR ---
PATIENT IN STABLE CONDITION. WILL ENDORSE TO FOLDING MACHINE OPERATOR FOR CONTINUITY OF CARE.
--- NOTE | 2019-08-13 19:05 | NUR ---
RECD. SLEEPING COMFORTABLY IN BED BUT EASILY WAKES UP WHEN AWAKEN. A/OX2, SEEMS DROWSY. IV OF D5NS AT 80 ML/HR INFUSING, RIGHT WRIST G22. RIGHT HIP INCISION COVERED WITH DRESSING DRY AND INTACT. SAFETY MEASURES ENFORCED. BED IN THE LOWEST POSITION. BED ALARM ON. NO APPEARANCE OF PAIN NOTED 0/10.
--- NOTE | 2019-08-13 21:02 | NUR ---
Patient's Plan of Care was discussed and reviewed with GOLD NIB GRINDER: PAWAN, WILL CONTINUE WITH CURRENT POC.
[2019-08-13] MEDS: DONEPEZIL 10 MG TAB PO SCH (21:27)
--- NOTE | 2019-08-13 21:27 | NUR ---
DUE PO MEDICATIONS GIVEN.
--- NOTE | 2019-08-13 22:30 | NUR ---
ASSISTED THREE TIMES WITH BED WITT, VOIDING FREELY DARK YELLOW URINE,
--- NOTE | 2019-08-13 23:00 | NUR ---
AWAKE, SHOUTING, CONFUSED. WANTS TO CALL THE POLICE. REORIENTED TO HOSPITAL SETTING.
[2019-08-14] VITALS: BP 150/55
[2019-08-14] MEDS: ZOLPIDEM 5 MG TAB PO PRN (00:13)
[2019-08-14] MEDS: HYDROcodone/APAP 7.5/325 MG 1 TAB PO PRN ×3 (00:13→05:40)
--- NOTE | 2019-08-14 01:00 | NUR ---
SLEEPING COMFORTABLY IN BED.
[2019-08-14] MEDS: DEXT 5% /NACL 0.9% 1,000 ML IV SCH ×3 (01:25→21:05)
--- NOTE | 2019-08-14 04:00 | NUR ---
STILL SLEEPING COMFORTABLY IN BED.
--- NOTE | 2019-08-14 05:30 | NUR ---
TRYING TO GET OUT OF BED, CONFUSED. REORIENTED TO HOSPITAL SETTING.
[2019-08-14] MEDS: LEVOTHYROXINE 0.025 MG TAB PO SCH (05:40)
[2019-08-14] MEDS: LEVOTHYROXINE 0.112 MG TAB PO SCH (05:40)
[2019-08-14 06:57] LABS: BASOPHILS # (AUTO) 0.1 K/uL (0.00-0.22); EOSINOPHILS # (AUTO) 0.4 K/uL (0-0.4); EOSINOPHILS % (AUTO) 7.3 % (0.0-4.0); HEMATOCRIT 25.9 % (36-48); HEMOGLOBIN 8.7 g/dL (12.0-16.0); LYMPHOCYTES # (AUTO) 0.9 K/uL (2.5-16.5); LYMPHOCYTES % (AUTO) 14.4 % (20.5-51.1); MEAN CORPUSCULAR HEMOGLOBIN 30 pg (27-31); MEAN CORPUSCULAR HGB CONC 34 g/dL (33-37); MONOCYTES # (AUTO) 0.6 K/uL (0.8-1.0); MONOCYTES % (AUTO) 10.2 % (1.7-9.3); NEUTROPHILS % (AUTO) 67.1 % (42.2-75.2); PLATELET COUNT (AUTO) 127 K/uL (140-450); RED BLOOD CELL COUNT(AUTO) 2.87 MIL/uL (4.20-5.40); RED CELL DISTRIBUTION WIDTH 13.6 % (11.6-13.7)
[2019-08-14 07:06] LABS: ANION GAP 8.9 (8-16); CARBON DIOXIDE 28.4 mmol/L (21-32); CHLORIDE 107 mmol/L (98-107); CREATININE 0.6 mg/dL (0.6-1.3); GLUCOSE 138 mg/dL (74-106); POTASSIUM 3.3 mmol/L (3.5-5.1); SODIUM SERUM 141 mmol/L (136-145); UREA NITROGEN, BLOOD 8 mg/dL (7-18)
[2019-08-14 07:09] LABS: MAGNESIUM 1.9 mg/dL (1.8-2.4); PHOSPHORUS 2.4 mg/dL (2.5-4.9)
--- NOTE | 2019-08-14 07:15 | NUR ---
CONDITION REMAIN STABLE. ENDORSED TO AM SHIFT NURSE FOR CONTINUITY OF CARE.
--- NOTE | 2019-08-14 07:16 | NUR ---
RECEIVED BEDSIDE REPORT FROM STOREROOM SUPERVISOR NURSE BENIGNO. PATIENT IN STABLE CONDITION. SKIN WARM AND DRY TO TOUCH. RESPIRATIONS EVEN AND UNLABORED, ROOM AIR. IV INTACT AND PATENT. SAFETY MEASURES IN PLACE. BED IN LOW POSITION. BED ALARM ON. CALL LIGHT WITHIN REACH AT BEDSIDE. WILL CONTINUE TO MONITOR.
[2019-08-14 08:00] VITALS: BP 124/50
[2019-08-14] MEDS: LISINOPRIL 20 MG TAB PO SCH (09:00)
--- NOTE | 2019-08-14 09:02 | NUR ---
PT SLEEPING AT THIS TIME. RESPIRATIONS EVEN AND UNLABORED. BED IN LOW POSITION. BED ALARM ON. CALL LIGHT AT BEDSIDE. WILL CONTINUE TO MONITOR. [id number]
--- NOTE | 2019-08-14 09:06 | NUR ---
08/14/19 RD INITIAL ASSESSMENT COMPLETED PLEASE REFER TO NUTRITION ASSESSMENT UNDER CARE ACTIVITY FOR ESTIMATED NUTRITIONAL NEEDS. RD RECOMMENDATIONS: 1. CONTINUE ON MECHANICAL SOFT DIET (THIN LIQUIDS) TOLERATED. 2. CONSULT RDN PRN. 3. RD WILL F/U 3-5 DAYS; MODERATE RISK. NARA ORTEGA MS, RDN
[2019-08-14] MEDS ORDERED: POTASSIUM PHOSPHATE 15 MM in NACL 0.9% 250 ML IV SCH (10:00)
[2019-08-14] MEDS: SERTRALINE 50 MG TAB PO SCH (10:36)
[2019-08-14] MEDS: FAMOTIDINE 20 MG TAB PO SCH (10:36)
[2019-08-14] MEDS: CALCIUM CARB/VIT-D 500 MG/200 IU 1 TAB PO SCH (10:36)
[2019-08-14] MEDS: MEMANTINE 10 MG TAB PO SCH ×2 (10:36→21:03)
[2019-08-14] MEDS: OLANZapine 2.5 MG TAB PO SCH ×2 (10:36→21:03)
--- NOTE | 2019-08-14 11:45 | NUR ---
PT SLEEPING AT THIS TIME. RESPIRATIONS EVEN AND UNLABORED. BED IN LOW POSITION. BED ALARM ON. CALL LIGHT AT BEDSIDE. WILL CONTINUE TO MONITOR.
--- NOTE | 2019-08-14 13:12 | NUR ---
ASSISTED IN FEEDING. MINIMAL INTAKE. RESPIRATIONS EVEN AND UNLABORED. BED IN LOW POSITION. BED ALARM ON. CALL LIGHT AT BEDSIDE. WILL CONTINUE TO MONITOR.
[2019-08-14 16:00] VITALS: BP 136/49
--- NOTE | 2019-08-14 17:02 | NUR ---
PT SLEEPING AT THIS TIME. RESPIRATIONS EVEN AND UNLABORED. BED IN LOW POSITION. BED ALARM ON. CALL LIGHT AT BEDSIDE. WILL CONTINUE TO MONITOR.
--- NOTE | 2019-08-14 19:25 | NUR ---
RECEIVED PT SLEEPING, EASILY AROUSABLE, AAOX2, CONFUSED AND FORGETFUL SEC TO HX OF DEMENTIA, ABLE TO MAKE NEEDS KNOWN AND FOLLOW COMMANDS, DENIES ANY PAIN, RT HIP DRESSING DRY AND INTACT, IVF INFUSING WELL, SAFETY MEASURES IN PLACE, CALL LIGHT WITHIN REACH.
[2019-08-14] MEDS: DONEPEZIL 10 MG TAB PO SCH (21:02)
--- NOTE | 2019-08-14 21:05 | NUR ---
DUE MEDS ADMINISTERED WITH EDUCATION PROVIDED, REPOSITIONED AND OFFLOAD PRESSURE AREAS, ALL NEEDS ATTENDED.
--- NOTE | 2019-08-14 21:40 | NUR ---
PT AT TIMES INCONTINENT OF URINE, PERINEAL CARE DONE, MONITORED CLOSELY.
--- NOTE | 2019-08-14 23:50 | NUR ---
PT TRIGGERED BED ALARM, SEEN PT TRYING TO GET OOB, PT CONFUSED AND DISORIENTED, REORIENT TO PLACE AND TIME, OFFERED BEDPAN AND VOIDED FREELY WITH SMALL AMOUNT OF CLEAR URINE, SIDE RAILS UP AND BED ALARM ON, MONITORED CLOSELY.
[2019-08-15] MEDS: ZOLPIDEM 5 MG TAB PO PRN ×2 (00:55→21:51)
[2019-08-15] MEDS: HYDROcodone/APAP 7.5/325 MG 1 TAB PO PRN ×2 (01:00→23:08)
--- NOTE | 2019-08-15 01:00 | NUR ---
PT CONFUSED TRYING TO GET OOB, REORIENTED TO TIME AND PLACE, COMPLAINING OF RT HP AND LEG PAIN, MEDICATED PRN WITH NORCO AND AMBIEN FOR SLEEP, SIDE RAILS UP AND BED ALARM ON, MONITORED CLOSELY.
[2019-08-15 01:38] VITALS: BP 149/55
--- NOTE | 2019-08-15 01:40 | NUR ---
PT SLEEPING, EASILY AROUSABLE, VITAL SIGNS TAKEN:BP-149/55, HR-85, PAIN LEVEL GOING DOWN, MONITORED CLOSELY.
[2019-08-15] MEDS: DEXT 5% /NACL 0.9% 1,000 ML IV SCH ×2 (02:44→14:06)
--- NOTE | 2019-08-15 03:00 | NUR ---
SEEN PT SLEEPING, VISIBLE CHEST RISE AND FALL, NO SIGNS OF PAIN, IVF INFUSING WELL, BED ALARM ON, MONITORED CLOSELY.
[2019-08-15] MEDS: LEVOTHYROXINE 0.112 MG TAB PO SCH (05:50)
[2019-08-15] MEDS: LEVOTHYROXINE 0.025 MG TAB PO SCH (05:50)
--- NOTE | 2019-08-15 06:20 | NUR ---
IV LINE LEAKING, CANNULA INTACT, NEW IV LINE INSERTED TO RT FOREARM, IVF RESUMED, DENIES ANY PAIN, RT HIP DRESSING DRY AND INTACT, BED ALARM ON, MONITORED CLOSELY.
--- NOTE | 2019-08-15 06:47 | NUR ---
PT TRIGGERED BED ALARM, SEEN TRYING TO GET OOB, PT STATED IM HUNGRY, REORIENT TO TIME AND PLACE, PUDDING PROVIDED, ABLE TO EAT INDEPENDENTLY, MONITORED CLOSELY.
--- NOTE | 2019-08-15 07:08 | NUR ---
PT SLEEPING, NO SIGNS OF DISTRESS, REPORT GIVEN TO ESTELLE WERNER FOR CONTINUITY OF CARE.
--- NOTE | 2019-08-15 07:09 | NUR ---
RECEIVED BEDSIDE REPORT FROM MANAGER GARDEN NURSE ALEXIS. PATIENT IN STABLE CONDITION. SKIN WARM AND DRY TO TOUCH. RESPIRATIONS EVEN AND UNLABORED, ROOM AIR. IV INTACT AND PATENT. SAFETY MEASURES IN PLACE. BED IN LOW POSITION. BED ALARM ACTIVATED. CALL LIGHT WITHIN REACH AT BEDSIDE. WILL CONTINUE TO MONITOR.
[2019-08-15 07:14] LABS: BASOPHILS # (AUTO) 0.1 K/uL (0.00-0.22); BASOPHILS % (AUTO) 1.1 % (0.0-2.0); EOSINOPHILS # (AUTO) 0.4 K/uL (0-0.4); EOSINOPHILS % (AUTO) 6.6 % (0.0-4.0); HEMATOCRIT 25.6 % (36-48); HEMOGLOBIN 8.7 g/dL (12.0-16.0); LYMPHOCYTES % (AUTO) 18.9 % (20.5-51.1); MEAN CORPUSCULAR HEMOGLOBIN 30 pg (27-31); MEAN CORPUSCULAR HGB CONC 34 g/dL (33-37); MEAN CORPUSCULAR VOLUME 88.6 fL (80-94); MONOCYTES # (AUTO) 0.5 K/uL (0.8-1.0); MONOCYTES % (AUTO) 9.1 % (1.7-9.3); NEUTROPHILS # (AUTO) 3.5 K/uL (1.8-7.7); NEUTROPHILS % (AUTO) 64.3 % (42.2-75.2); PLATELET COUNT (AUTO) 152 K/uL (140-450); RED BLOOD CELL COUNT(AUTO) 2.89 MIL/uL (4.20-5.40); RED CELL DISTRIBUTION WIDTH 13.5 % (11.6-13.7); WHITE BLOOD COUNT (AUTO) 5.5 K/uL (4.8-10.8)
[2019-08-15 07:22] LABS: ANION GAP 10.4 (8-16); CARBON DIOXIDE 28.1 mmol/L (21-32); CHLORIDE 106 mmol/L (98-107); CREATININE 0.7 mg/dL (0.6-1.3); GLUCOSE 107 mg/dL (74-106); POTASSIUM 3.5 mmol/L (3.5-5.1); SODIUM SERUM 141 mmol/L (136-145); UREA NITROGEN, BLOOD 7 mg/dL (7-18)
[2019-08-15 07:28] LABS: MAGNESIUM 1.9 mg/dL (1.8-2.4); PHOSPHORUS 2.9 mg/dL (2.5-4.9)
[2019-08-15 08:00] VITALS: BP 160/53
--- NOTE | 2019-08-15 09:12 | NUR ---
HOURLY ROUNDING. PT ASLEEP. EASILY AROUSABLE. NO SIGNS OF DISTRESS NOTED. RESPIRATIONS EVEN AND UNLABORED. SAFETY MEASURES IN PLACE AND CALL LIGHT WITHIN REACH AND BED ALARM ACTIVE. WILL CONTINUE TO MONITOR
[2019-08-15] MEDS: SERTRALINE 50 MG TAB PO SCH (10:34)
[2019-08-15] MEDS: MEMANTINE 10 MG TAB PO SCH ×2 (10:35→20:14)
[2019-08-15] MEDS: LISINOPRIL 20 MG TAB PO SCH (10:35)
[2019-08-15] MEDS: OLANZapine 2.5 MG TAB PO SCH ×2 (10:36→20:15)
[2019-08-15] MEDS: CALCIUM CARB/VIT-D 500 MG/200 IU 1 TAB PO SCH (10:36)
[2019-08-15] MEDS: FAMOTIDINE 20 MG TAB PO SCH (10:36)
--- NOTE | 2019-08-15 12:25 | NUR ---
HOURLY ROUNDING. PT RESTING IN BED EASILY AROUSABLE. NO SIGNS OF DISTRESS NOTED. RESPIRATIONS EVEN AND UNLABORED. SAFETY MEASURES IN PLACE BED IN LOW POSITION AND BED ALARM ACTIVATED. WILL CONTINUE TO MONITOR
--- NOTE | 2019-08-15 13:01 | NUR ---
ASSISTED IN FEEDING PT. PT ATE 3 BITES EACH ITEM AND REQUESTED TO STOP FEEDING. PT IN STABLE CONDITION. RESPIRATIONS EVEN AND UNLABORED. BED IN LOW POSITION. BED ALARM ON. CALL LIGHT AT BEDSIDE. WILL CONTINUE TO MONITOR.
[2019-08-15 16:00] VITALS: BP 154/57
--- NOTE | 2019-08-15 16:10 | NUR ---
HOURLY ROUNDING. PT AWAKE IN BED. NO SIGNS OF DISTRESS NOTED SAFETY MEASURES IN PLACE BED ALARM ACTIVE
--- NOTE | 2019-08-15 18:20 | NUR ---
HOURLY ROUNDING. PT AWAKE IN BED. NO SIGNS OF DISTRESS NOTED. SAFETY MEASURE IN PLACE. BED ALARM ACTIVE
--- NOTE | 2019-08-15 19:15 | NUR ---
GAVE REPORT TO CONSUMER LENDER NURSE ALEXIS FOR CONTINUITY OF CARE. PT IN STABLE CONDITION.
[2019-08-15] MEDS: DONEPEZIL 10 MG TAB PO SCH (20:15)
--- NOTE | 2019-08-15 21:57 | NUR ---
ROUNDS MADE, SEEN PT CRYING STATED THERE IS A MAN INSIDE THE ROOM, REORIENTED TO TIME AND PLACE, PT CONFUSED SEC TO HX OF ALZHEIMER DEMENTIA, PT WANTS TO AMBULATE TO TOILET, EXPLAINED TO PT THAT SHE JUST HAD RT HIP SURGERY, BEDPAN PROVIDED, VOIDED FREELY, MEDICATED WITH AMBIEN FOR SLEEP, REINFORCE TO STAY IN BED, SIDE RAILS UP AND BED ALARM ON, MONITORED CLOSELY.
--- NOTE | 2019-08-15 23:10 | NUR ---
PT TRIGGERED BED ALARM, PT SEEN TRYING TO GET OOB, REORIENT TO TIME AND PLACE, PT CONFUSED AND FORGETFUL, COMPLAINING OF RT HIP PAIN, MEDICATED PRN WITH NORCO, REINFORCE THE NEED TO STAY IN BED DUE TO S/P RT HIP ORIF SX, SIDE RAILS UP AND BED ALARM ON, MONITORED CLOSELY.
[2019-08-16] VITALS: BP 156/62
--- NOTE | 2019-08-16 02:30 | NUR ---
BED ALARM TRIGGERED, SEEN PT TRYING TO GET OOB, PT WANTS TO GO TO TOILET, REINFORCED TO PT THAT SHE NEED TO USE A BEDPAN DUE TO S/P RT HIP SURGERY, PT ALREADY VOIDED ON THE BRI, PERINEAL CARE DONE, SIDE RAILS UP X3 AND BED ALARM ON, ALL NEEDS ATTENDED.
[2019-08-16] MEDS: DEXT 5% /NACL 0.9% 1,000 ML IV SCH (03:05)
--- NOTE | 2019-08-16 03:20 | NUR ---
PT TRIGGERED BED ALARM, SEEN TRYING TO GET OOB, STATED SHE NEEDS TO GO TO HER DOCTOR'S APPT, REORIENT TO PLACE AND TIME, FALL PRECAUTIONS IN PLACE.
--- NOTE | 2019-08-16 04:35 | NUR ---
PT TRIGGERED BED ALARM, WANTS TO GO TO TOILET TO VOID, REORIENTED TO HER CONDITION, BEDPAN PROVIDED AND VOIDED FREELY WITH CLEAR URINE, SIDE RAILS UP AND BED ALARM ON, MONITORED CLOSELY.
[2019-08-16] MEDS: LEVOTHYROXINE 0.112 MG TAB PO SCH (05:41)
[2019-08-16] MEDS: LEVOTHYROXINE 0.025 MG TAB PO SCH (05:41)
[2019-08-16] MEDS: HYDROcodone/APAP 7.5/325 MG 1 TAB PO PRN (05:41)
--- NOTE | 2019-08-16 05:41 | NUR ---
PT CONFUSED TRYING TO GET OOB, REORIENTED TO HER CONDITION, BEDPAN PROVIDED AND VOIDED FREELY, COMPLAINING OF RT HIP PAIN, MEDICATED PRN WITH NORCO AND DUE SYNTHROID GIVEN, TOLERATED WELL, RT HIP DRESSING DRY AND INTACT, SIDE RAILS UP AND BED ALARM ON, MONITORED CLOSELY.
--- NOTE | 2019-08-16 06:22 | NUR ---
ROUNDS MADE, SEEN PT SLEEPING, NO DISTRESS NOTED, SIDE RAILS UP AND BED ALARM ON, MONITORED CLOSELY.
[2019-08-16 06:32] LABS: ANION GAP 10.9 (8-16); CARBON DIOXIDE 27.6 mmol/L (21-32); CHLORIDE 108 mmol/L (98-107); CREATININE 0.6 mg/dL (0.6-1.3); GLUCOSE 123 mg/dL (74-106); MAGNESIUM 1.8 mg/dL (1.8-2.4); PHOSPHORUS 2.6 mg/dL (2.5-4.9); POTASSIUM 3.5 mmol/L (3.5-5.1); SODIUM SERUM 143 mmol/L (136-145); UREA NITROGEN, BLOOD 11 mg/dL (7-18)
--- NOTE | 2019-08-16 07:10 | NUR ---
PT SLEEPING, NO SIGNS OF DISTRESS, BEDSIDE REPORT GIVEN TO ESTELLE FELICIANO FOR CONTINUITY OF CARE.
[2019-08-16 07:21] LABS: BASOPHILS % (AUTO) 0.8 % (0.0-2.0); EOSINOPHILS # (AUTO) 0.3 K/uL (0-0.4); EOSINOPHILS % (AUTO) 5.5 % (0.0-4.0); HEMATOCRIT 24.8 % (36-48); HEMOGLOBIN 8.5 g/dL (12.0-16.0); LYMPHOCYTES # (AUTO) 1.2 K/uL (2.5-16.5); LYMPHOCYTES % (AUTO) 22.4 % (20.5-51.1); MEAN CORPUSCULAR HEMOGLOBIN 30 pg (27-31); MEAN CORPUSCULAR HGB CONC 34 g/dL (33-37); MEAN CORPUSCULAR VOLUME 88.3 fL (80-94); MONOCYTES # (AUTO) 0.5 K/uL (0.8-1.0); MONOCYTES % (AUTO) 9.7 % (1.7-9.3); NEUTROPHILS # (AUTO) 3.4 K/uL (1.8-7.7); NEUTROPHILS % (AUTO) 61.6 % (42.2-75.2); PLATELET COUNT (AUTO) 173 K/uL (140-450); RED BLOOD CELL COUNT(AUTO) 2.81 MIL/uL (4.20-5.40); RED CELL DISTRIBUTION WIDTH 13.3 % (11.6-13.7); WHITE BLOOD COUNT (AUTO) 5.6 K/uL (4.8-10.8)
--- NOTE | 2019-08-16 07:30 | NUR ---
RECEIVED REPORT FROM NIGHT NURSE, PT IN STABLE CONDITION. PT IN BED ASLEEP, NO DISTRESS NOTED. SURGICAL WOUND PRESENT ON RIGHT HIP. DRESSING INTACT. IV IN PLACE PATENT AND ASYMPTOMATIC INFUSING PER ORDER IN R FA 22G. RESPIRATIONS EVEN AND UNLABORED ON ROOM AIR. SAFETY MEASURES IN PLACE. CALL LIGHT WITHIN REACH, BED IN LOW POSITION. WILL CONTINUE TO MONITOR.
[2019-08-16 08:00] VITALS: BP 175/64
[2019-08-16] MEDS: FAMOTIDINE 20 MG TAB PO SCH (08:30)
[2019-08-16] MEDS: MEMANTINE 10 MG TAB PO SCH (08:31)
[2019-08-16] MEDS: SERTRALINE 50 MG TAB PO SCH (08:31)
[2019-08-16] MEDS: LISINOPRIL 20 MG TAB PO SCH (08:35)
[2019-08-16] MEDS: CALCIUM CARB/VIT-D 500 MG/200 IU 1 TAB PO SCH (08:36)
[2019-08-16] MEDS: OLANZapine 2.5 MG TAB PO SCH (08:36)
--- NOTE | 2019-08-16 08:44 | NUR ---
MEDICATIONS ADMINISTERED PER ORDER. PT TOLERATED WELL, NO DISTRESS NOTED. SAFETY MEASURES IN PLACE, CALL LIGHT WITHIN REACH. WILL CONTINUE TO MONITOR.
--- NOTE | 2019-08-16 10:48 | NUR ---
PT IN BED ASLEEP, NO DISTRESS NOTED. RESPIRATIONS EVEN AND UNLABORED ON ROOM AIR. SAFETY MEASURES IN PLACE. CALL LIGHT WITHIN REACH. WILL CONTINUE TO MONITOR.
[2019-08-16 11:03] VITALS: BP 114/50
--- NOTE | 2019-08-16 12:59 | NUR ---
PT FINISHED EATING LUNCH, SLEEPING NOW. NO DISTRESS NOTED. RESPIRATIONS EVEN AND UNLABORED ON ROOM AIR. SAFETY MEASURES IN PLACE. CALL LIGHT WITHIN REACH. WILL CONTINUE TO MONITOR.
--- NOTE | 2019-08-16 15:20 | NUR ---
PT DISCHARGED AT THIS TIME. DISCHARGE, FOLLOWUP AND MEDICATION TEACHING GIVEN, PT VERBALIZED UNDERSTANDING. PT SIGNED DISCHARGE PAPERWORK. IV SITE REMOVED WITH MINIMAL BLOOD LOSS AND LUMEN INTACT. WOUNDS PHOTOGRAPHED AND IMAGES PLACED IN CHART. RESPIRATIONS EVEN AND UNLABORED UPON DISCHARGE., PT STABLE AND ABLE TO COMMUNICATE. FLU AND PNA VACCINES REFUSED. ID BANDS REMOVED. BELONGIGNS CHECKED AND RETURNED TO PT. PT LEFT UNIT [facility]IA [facility], TRANSFERED TO [facility].
== END 2019-08-16 15:20 | DRG 480 ==
LOC: MED 19:54 → MTU 22:48 → MMU 08-14 21:51
PROVIDERS: ADMIT General Practice; ATTEND General Practice
PROC: 0QS604Z Reposition Right Upper Femur with Internal Fixation Device, Open Approach (ICD-10-PCS; principal; 2019-08-11 13:00)
DX: S72.141A Displaced intertrochanteric fracture of right femur, initial encounter for closed fracture (principal); G93.41 Metabolic encephalopathy; I10 Essential (primary) hypertension; E78.5 Hyperlipidemia, unspecified; K21.9 Gastro-esophageal reflux disease without esophagitis; E03.9 Hypothyroidism, unspecified; F20.9 Schizophrenia, unspecified; W18.30XA Fall on same level, unspecified, initial encounter; G30.9 Alzheimer's disease, unspecified; F02.80 Dementia in other diseases classified elsewhere, unspecified severity, without behavioral disturbance, psychotic disturbance, mood disturbance, and anxiety; E86.0 Dehydration; F41.9 Anxiety disorder, unspecified; E83.51 Hypocalcemia; D64.9 Anemia, unspecified; F31.9 Bipolar disorder, unspecified; Z88.8 Allergy status to other drugs, medicaments and biological substances; Z79.899 Other long term (current) drug therapy; Z85.850 Personal history of malignant neoplasm of thyroid; Y93.89 Activity, other specified; Y92.129 Unspecified place in nursing home as the place of occurrence of the external cause; Y99.8 Other external cause status; Z90.710 Acquired absence of both cervix and uterus
CPT/HCPCS: 36415; 70450; 71045; 72192; 73502; 80048; 81001; 82150; 83036; 83690; 83735; 83880; 84100; 84436; 84439; 84443; 84479; 84484; 85025; 85610; 85730; 86870; 86886; 86900; 86901; 87081; 87086; 92610; 93005; 93880; 96374; 96375; 96376; 97110; 97112; 97116; 97161-GP; 97530; 99285; C1713; C1763; J0690; J0696; J1100; J1644; J1885; J2270; J2405; J2704; J3010; J3490; J7030; J7042; J7060; Q0092

== ENCOUNTER 2020-06-06 10:44 | Emergency (ER) | payer OTHER, MEDICAID ==
[~2020-06-06] VITALS: Ht 157.5 cm; Wt 65.8 kg
[~2020-06-06 10:44] MED LIST changes: +ACET-2619 PO; -ALBU3SOL83 IH; +APIX2.5 PO; -ASPI-1822 PO; -ATOR20TA PO; +CALC625T27 PO; +DIVA125E1 PO; +DOCU1TAB73 PO; -MELA5TAB6 PO; -OLAN2.5T1 PO; +QUET50TA PO
--- NOTE | 2020-06-06 10:45 | NUR ---
Patient CODY NORRIS from [facility], transferred to bed CHF. RN evaluating patient at bedside.
[2020-06-06 10:56] VITALS: BP 129/80
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
--- NOTE | 2020-06-06 11:44 | NUR ---
Dr. Joiner is evaluating the patient at bedside.
[2020-06-06 12:52] LABS: BASOPHILS % (AUTO) 0.4 % (0.0-2.0); EOSINOPHILS # (AUTO) 0.1 K/uL (0-0.4); EOSINOPHILS % (AUTO) 1.9 % (0.0-4.0); HEMATOCRIT 35.8 % (36-48); HEMOGLOBIN 11.8 g/dL (12.0-16.0); LYMPHOCYTES # (AUTO) 1.3 K/uL (2.5-16.5); LYMPHOCYTES % (AUTO) 18.6 % (20.5-51.1); MEAN CORPUSCULAR HEMOGLOBIN 31 pg (27-31); MEAN CORPUSCULAR HGB CONC 33 g/dL (33-37); MEAN CORPUSCULAR VOLUME 92.8 fL (80-94); MONOCYTES # (AUTO) 0.6 K/uL (0.8-1.0); NEUTROPHILS # (AUTO) 4.9 K/uL (1.8-7.7); NEUTROPHILS % (AUTO) 71.1 % (42.2-75.2); PLATELET COUNT (AUTO) 172 K/uL (140-450); RED BLOOD CELL COUNT(AUTO) 3.86 MIL/uL (4.20-5.40); WHITE BLOOD COUNT (AUTO) 6.9 K/uL (4.8-10.8)
[2020-06-06 13:08] LABS: ALBUMIN 3.9 g/dL (3.4-5.0); ANION GAP 13.2 (8-16); ASPARTATE AMINOTRANSFERASE 16 U/L (15-37); CARBON DIOXIDE 26.7 mmol/L (21-32); CHLORIDE 106 mmol/L (98-107); CREATININE 0.7 mg/dL (0.6-1.3); GLUCOSE 96 mg/dL (74-106); POTASSIUM 3.9 mmol/L (3.5-5.1); SODIUM SERUM 142 mmol/L (136-145); TOTAL BILIRUBIN 0.4 mg/dL (0.0-1.0); UREA NITROGEN, BLOOD 22 mg/dL (7-18)
[2020-06-06 13:12] LABS: APPEARANCE,URINE CLEAR (CLEAR); BILIRUBIN,URINE NEGATIVE (NEGATIVE); BLOOD, URINE NEGATIVE (NEGATIVE); COLOR,URINE YELLOW (YELLOW); LEUKOCYTE ESTERASE ,URINE NEGATIVE (NEGATIVE); NITRITE, URINE NEGATIVE (NEGATIVE); PH,URINE 8.5 (5.0-9.0); UGLUCOSE NEGATIVE (NEGATIVE)
--- NOTE | 2020-06-06 13:38 | NUR ---
[facility] WILL PICK PATIENT UP AROUND 2PM.
[2020-06-06 14:00] VITALS: BP 129/80
--- NOTE | 2020-06-06 16:36 | NUR ---
Patient discharged with v/s stable. Written and verbal after care instructions given and explained. Patient alert, oriented and verbalized understanding of instructions. Ambulatory with steady gait. All questions addressed prior to discharge. ID band removed. Patient advised to follow up with PMD.
== END 2020-06-06 16:36 | disposition home or self-care (01) ==
LOC: MED 10:44
DX: S40.811A Abrasion of right upper arm, initial encounter (principal); S60.512A Abrasion of left hand, initial encounter; F91.1 Conduct disorder, childhood-onset type; Y04.0XXA Assault by unarmed brawl or fight, initial encounter; Y93.89 Activity, other specified; Y92.89 Other specified places as the place of occurrence of the external cause; Y99.8 Other external cause status
CPT/HCPCS: 36415; 70450; 80053; 81003; 84484; 85025; 90471; 90715; 93005; 99285

== ENCOUNTER 2020-06-06 15:54 | Emergency (ER) | payer OTHER, MEDICAID ==
[~2020-06-06] VITALS: Ht 157.5 cm; Wt 65.8 kg
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
[2020-06-06 17:00] VITALS: BP 151/63
[2020-06-07] MEDS ORDERED: HALOPERIDOL IM 5 MG/ML VIAL IM ONE ×2 (00:45→19:05)
--- NOTE | 2020-06-07 08:47 | NUR ---
PT MOVED TO [facility].
[2020-06-07] MEDS: OLANZapine 2.5 MG TAB PO SCH ×2 (09:00→21:00)
[2020-06-07] MEDS: SERTRALINE 50 MG TAB PO SCH (09:00)
[2020-06-07] MEDS: MEMANTINE 10 MG TAB PO SCH (09:00)
--- NOTE | 2020-06-07 09:50 | NUR ---
PT IS SITTING UP EATING BREAKFAST AT THIS TIME. NO DISTRESS NOTED. PHARMACY CALLED FOR AM MEDS.
--- NOTE | 2020-06-07 12:00 | NUR ---
Received packet from rin. 5150 is missing time. I requested the hold be revised and sent back to us
--- NOTE | 2020-06-07 12:15 | NUR ---
Call out to Constance [phone] [facility] corrections caseworker. I confirmed that her pt is in the ER on a 5150. She advised she would call back in [facility] to placement and contracted facilitties
--- NOTE | 2020-06-07 12:27 | NUR ---
Spoke steven dominguez from [employer]. Confirmed contracted facilitties are as listed: [facility]
--- NOTE | 2020-06-07 12:32 | NUR ---
PACKET FAXED TO THE FOLLOWING [facility]
--- NOTE | 2020-06-07 15:26 | NUR ---
No beds at the following facilitties: [facility]
--- NOTE | 2020-06-07 15:29 | NUR ---
CC will continue to contact surrounding contracted facilitties for vacancies
--- NOTE | 2020-06-07 22:00 | NUR ---
PT LYING IN BED, VSS. NO SIGN OF DISTRESS NOTED. TECH MONITORING PT, SAFETY PRECAUTIONS IN PLACE, WILL CONTINUE TO MONITOR.
--- NOTE | 2020-06-08 00:05 | NUR ---
PT LYING IN BED, VSS. NO SIGN OF DISTRESS NOTED. TECH MONITORING PT, SAFETY PRECAUTIONS IN PLACE, WILL CONTINUE TO MONITOR.
--- NOTE | 2020-06-08 00:35 | NUR ---
Called the following facilities [facility] Contracted facilities for patient psych placement, still no bed availability
--- NOTE | 2020-06-08 05:30 | NUR ---
PT LYING IN BED, PT APPEARS TO BE SLEEPIONG, EYES ARE CLOSED. VSS. NO SIGN OF DISTRESS NOTED. TECH MONITORING PT, SAFETY PRECAUTIONS IN PLACE, WILL CONTINUE TO MONITOR.
[2020-06-08] MEDS: DONEPEZIL 10 MG TAB PO SCH ×2 (05:58→21:32)
[2020-06-08] MEDS: SERTRALINE 50 MG TAB PO SCH (09:00)
[2020-06-08] MEDS: OLANZapine 2.5 MG TAB PO SCH ×2 (09:00→21:31)
[2020-06-08] MEDS: MEMANTINE 10 MG TAB PO SCH (09:00)
--- NOTE | 2020-06-08 10:33 | NUR ---
FORMER[facility] to continue working on placement. Pt can only be transferred to facilities contracted with her HMO, she has been sent to these facilities pending openings. Will followup with insurance regarding auth to send elsewhere as beds are not available.
--- NOTE | 2020-06-08 17:12 | NUR ---
PT AMBULATED UP TO RESTROOM. NO ACUTE DISTRESS. PT AMBULATED WITH ASSISTANCE BACK TO BED. VSS AND UPDATED. PT OFFERED DINNER AND STATES SHE WILL TRY TO EAT WHEN IT COMES. SIDE RAILS UP.
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
--- NOTE | 2020-06-08 18:50 | NUR ---
REPORT RECEIVED FROM [facility].
[2020-06-08] MEDS ORDERED: CRUSHER, PILL MC ONE (21:24)
--- NOTE | 2020-06-08 23:15 | NUR ---
PT LYING IN BED. VISIBLE CHEST RISE AND FALL NOTED. NO SIGN OF DISTRESS NOTED. MONITORING PT, SAFETY PRECAUTIONS IN PLACE, WILL CONTINUE TO MONITOR.
--- NOTE | 2020-06-09 02:50 | NUR ---
PT LYING IN BED. VISIBLE CHEST RISE AND FALL NOTED. MONITORING PT, SAFETY PRECAUTIONS IN PLACE, WILL CONTINUE TO MONITOR.
--- NOTE | 2020-06-09 05:15 | NUR ---
PT SEEN WITH EYES CLOSED. VISIBLE CHEST RISE AND FALL NOTED. MONITORING AND SAFETY PRECAUTIONS IN PLACE. WILL CONTINUE TO MONITOR.
--- NOTE | 2020-06-09 05:41 | NUR ---
There are still no beds available at any of the contracted facilities for patient's insurance [facility] [place]
--- NOTE | 2020-06-09 08:36 | NUR ---
Received report. [facility] still workig on placement at this time.
--- NOTE | 2020-06-09 08:48 | NUR ---
PROVIDED PT WITH BREAKFAST TRAY
--- NOTE | 2020-06-09 09:19 | NUR ---
CALLED PHARMACY TO OBTAIN 0900 MEDS
[2020-06-09] MEDS: OLANZapine 2.5 MG TAB PO SCH (09:46)
[2020-06-09] MEDS: SERTRALINE 50 MG TAB PO SCH (09:46)
[2020-06-09] MEDS: MEMANTINE 10 MG TAB PO SCH (09:46)
--- NOTE | 2020-06-09 10:22 | NUR ---
PT ASLEEP IN [facility]. EQUAL CHEST RISE AND FALL, BED LOCKED AND IN LOWEST POSITION. SIDE RAILS X1. SAEFTY MEASURES IN PLACE. WILL CONTINUE TO MONITOR.
--- NOTE | 2020-06-09 18:55 | NUR ---
attempted to provide pt with meal tray, pt continuously ingoring message. will try again.
--- NOTE | 2020-06-09 19:00 | NUR ---
DR. MARTI EVALUTED PT AND 5150 HOLD EXTENDED.
[2020-06-09] MEDS ORDERED: OLANZapine 2.5 MG TAB PO SCH (21:00)
[2020-06-09] MEDS ORDERED: DIVALPROEX SPRINKLES 125 MG CAPDR PO SCH (21:00)
[2020-06-09] MEDS: DONEPEZIL 10 MG TAB PO SCH (21:00)
[2020-06-09] MEDS ORDERED: LORazepam 0.5 MG TAB PO ONE (21:00)
--- NOTE | 2020-06-09 23:03 | NUR ---
pt provided with pudding and water. currently eating. no complaints at this time. VSS
--- NOTE | 2020-06-10 02:07 | NUR ---
SPOKE TO MERY AT [facility], ACKNOWLEDGED RECEIVAL OF FAXED UPDATED HOLD. STILL LOOKING FOR PLACEMENT
--- NOTE | 2020-06-10 08:21 | NUR ---
Change of shift report given earlier. Patient insurance is limited to the following facilities for bed placement and acceptance [facility]/ [facility]/ [facility]/ [facility] Will keep facility updated with any information
--- NOTE | 2020-06-10 10:08 | NUR ---
CALLED PHARMACY TO SEND OVER THE SCHEDULED MEDS DUE TO NOT BEING ABLE TO PULL OUT FROM [facility].
--- NOTE | 2020-06-10 11:41 | NUR ---
Spoke to [facility] regarding patient. Accepting Doctor Amberly at [facility].
[2020-06-10 13:40] VITALS: BP 141/80
--- NOTE | 2020-06-10 13:40 | NUR ---
PATIENT LEFT WITH [facility] TO [place].
--- NOTE | 2020-06-10 14:02 | NUR ---
Patient discharged with v/s stable. Written and verbal after care instructions given and explained. Patient verbalized understanding. Ambulance Transport with to snf. All questions addressed prior to discharge. Advised to follow up with PMD.
== END 2020-06-10 13:40 ==
LOC: MED 15:54
DX: F20.9 Schizophrenia, unspecified (principal); F91.1 Conduct disorder, childhood-onset type; E11.9 Type 2 diabetes mellitus without complications; K21.9 Gastro-esophageal reflux disease without esophagitis; I10 Essential (primary) hypertension; F03.90 Unspecified dementia, unspecified severity, without behavioral disturbance, psychotic disturbance, mood disturbance, and anxiety; Z88.8 Allergy status to other drugs, medicaments and biological substances; Z79.899 Other long term (current) drug therapy; Z90.710 Acquired absence of both cervix and uterus
CPT/HCPCS: 70450; 99285; J1630

== ENCOUNTER 2020-07-04 07:37 | Emergency (ER) | payer OTHER, MEDICAID ==
[~2020-07-04] VITALS: Ht 162.6 cm; Wt 60.3 kg
[2020-07-04 07:58] VITALS: BP 147/64
[2020-07-04] MEDS ORDERED: DIVALPROEX SPRINKLES 125 MG CAPDR PO SCH (08:10)
[2020-07-04] MEDS ORDERED: MEMANTINE 10 MG TAB PO ONE (08:10)
[2020-07-04] MEDS ORDERED: SERTRALINE 50 MG TAB PO SCH (08:10)
--- NOTE | 2020-07-04 08:23 | NUR ---
DR MOE PERFORMING MSE IN [facility].
[2020-07-04] MEDS ORDERED: DONEPEZIL 10 MG TAB PO ONE (08:25)
--- NOTE | 2020-07-04 08:40 | NUR ---
REPORT GIVEN TO OSVALDO AT [facility]. ADVISED OF PT STATUS AND INFORMED THAT PATIENT WOULD BE RETURNING. ALL QUESTIONS ANSWERED.
[2020-07-04 09:07] VITALS: BP 147/64
--- NOTE | 2020-07-04 09:08 | NUR ---
Patient discharged with v/s stable. Written and verbal after care instructions given and explained. Patient verbalized understanding. Ambulance Transport with to skilled nursing. All questions addressed prior to discharge. Advised to follow up with PMD.
[2020-07-04] MEDS ORDERED: DONEPEZIL 10 MG TAB PO SCH (21:00)
== END 2020-07-04 09:08 ==
LOC: MED 07:37
DX: F20.9 Schizophrenia, unspecified (principal); F03.90 Unspecified dementia, unspecified severity, without behavioral disturbance, psychotic disturbance, mood disturbance, and anxiety; E11.9 Type 2 diabetes mellitus without complications; K21.9 Gastro-esophageal reflux disease without esophagitis; I10 Essential (primary) hypertension; Z79.899 Other long term (current) drug therapy; Z88.8 Allergy status to other drugs, medicaments and biological substances
CPT/HCPCS: 99284

== ENCOUNTER 2020-07-06 19:02 | Inpatient (IN) | payer OTHER, MEDICAID, SELFPAY ==
[~2020-07-06] VITALS: Ht 162.6 cm; Wt 68.0 kg
[2020-07-06] MEDS ORDERED: OLANZapine 5 MG ODT SL ONE (19:05)
[2020-07-06 19:10] VITALS: BP 131/56
[2020-07-06 19:32] LABS: BASOPHILS % (AUTO) 0.7 % (0.0-2.0); EOSINOPHILS # (AUTO) 0.1 K/uL (0-0.4); EOSINOPHILS % (AUTO) 1.7 % (0.0-4.0); HEMATOCRIT 33.7 % (36-48); HEMOGLOBIN 11.1 g/dL (12.0-16.0); LYMPHOCYTES % (AUTO) 19.1 % (20.5-51.1); MEAN CORPUSCULAR HEMOGLOBIN 31 pg (27-31); MEAN CORPUSCULAR HGB CONC 33 g/dL (33-37); MEAN CORPUSCULAR VOLUME 92.8 fL (80-94); MONOCYTES # (AUTO) 0.6 K/uL (0.8-1.0); MONOCYTES % (AUTO) 11.4 % (1.7-9.3); NEUTROPHILS # (AUTO) 3.7 K/uL (1.8-7.7); NEUTROPHILS % (AUTO) 67.1 % (42.2-75.2); PLATELET COUNT (AUTO) 177 K/uL (140-450); RED BLOOD CELL COUNT(AUTO) 3.63 MIL/uL (4.20-5.40); RED CELL DISTRIBUTION WIDTH 15.3 % (11.6-13.7); WHITE BLOOD COUNT (AUTO) 5.5 K/uL (4.8-10.8)
[2020-07-06 19:49] LABS: ACETAMINOPHEN < 0.5 ug/ml (10-30); ALBUMIN 3.6 g/dL (3.4-5.0); ANION GAP 14.8 (8-16); ASPARTATE AMINOTRANSFERASE 37 U/L (15-37); CARBON DIOXIDE 25.4 mmol/L (21-32); CHLORIDE 108 mmol/L (98-107); CREATININE 0.9 mg/dL (0.6-1.3); GLUCOSE 111 mg/dL (74-106); POTASSIUM 4.2 mmol/L (3.5-5.1); SALICYLATE < 2.8 mg/dL (2.8-20.0); SODIUM SERUM 144 mmol/L (136-145); TOTAL BILIRUBIN 0.4 mg/dL (0.0-1.0); UREA NITROGEN, BLOOD 35 mg/dL (7-18)
[2020-07-06] MEDS ORDERED: LORazepam 1 MG TAB PO ONE (19:55)
[2020-07-06] MEDS ORDERED: LORazepam 2 MG/ML VIAL IM ONE (20:00)
[2020-07-06] MEDS ORDERED: ZIPRASIDONE MESYLATE 20 MG/ML VIAL IM ONE (20:00)
[2020-07-06] MEDS ORDERED: WATER STERILE 10 ML MC ONE (20:04)
[2020-07-06 22:08] LABS: APPEARANCE,URINE CLEAR (CLEAR); BILIRUBIN,URINE NEGATIVE (NEGATIVE); BLOOD, URINE NEGATIVE (NEGATIVE); COLOR,URINE YELLOW (YELLOW); LEUKOCYTE ESTERASE ,URINE NEGATIVE (NEGATIVE); NITRITE, URINE NEGATIVE (NEGATIVE); UGLUCOSE NEGATIVE (NEGATIVE)
[2020-07-06 22:21] LABS: BARBITURATE, URINE NEGATIVE ng/ml (NEG <=200); BENZODIAZEPINE, URINE POSITIVE ng/mL (NEG <=200); CANNABINOID, URINE NEGATIVE ng/mL (NEG <=50); COCAINE, URINE NEGATIVE ng/mL (NEG <=300)
[2020-07-06 22:22] LABS: OPIATE, URINE NEGATIVE ng/mL (NEG <=2000); PHENCYCLIDINE SCREEN,URINE NEGATIVE ng/mL (NEG <=25)
[2020-07-07] MEDS ORDERED: ZIPRASIDONE MESYLATE 20 MG/ML VIAL IM ONE (13:35)
[2020-07-07] MEDS ORDERED: LORazepam 2 MG/ML VIAL ONE (18:22)
[2020-07-07] MEDS ORDERED: LORazepam 2 MG/ML VIAL IM ONE (18:25)
[2020-07-08] MEDS ORDERED: ZIPRASIDONE MESYLATE 20 MG/ML VIAL IM ONE (02:30)
[2020-07-08] MEDS ORDERED: diphenhydrAMINE 50 MG/ML VIAL IM ONE (02:30)
[2020-07-08] MEDS ORDERED: LORazepam 2 MG/ML VIAL IM ONE ×2 (02:30→16:25)
[2020-07-09] MEDS ORDERED: LORazepam 2 MG/ML VIAL IM ONE ×2 (05:30→13:55)
[2020-07-09] MEDS ORDERED: POTASSIUM CHLORIDE 40 MEQ, LIDOCAINE MPF 1% 25 MG in NACL 0.9% 250 ML IV PRN (12:05)
[2020-07-09] MEDS ORDERED: DOCUSATE SODIUM 100 MG GELCAP PO PRN (12:05)
[2020-07-09] MEDS ORDERED: ACETAMINOPHEN 325 MG TAB PO PRN (12:05)
[2020-07-09] MEDS ORDERED: guaiFENesin DM 200/20 MG-10 ML 10 ML UDC PO PRN (12:05)
[2020-07-09] MEDS ORDERED: HYDROcodone/APAP 7.5/325 MG 1 TAB PO PRN (12:05)
[2020-07-09] MEDS ORDERED: ONDANSETRON 4 MG/2 ML VIAL IM/IVP PRN (12:05)
[2020-07-09] MEDS: DEXT 5% /NACL 0.9% 1,000 ML IV SCH (12:05)
[2020-07-09 15:16] LABS: PROTHROMBIN TIME 10.4 secs (10.8-13.4)
[2020-07-09 15:23] LABS: CHOL/HDL RATIO 3.8 (1-4.5); FREE T4 (FREE THYROXINE) 0.81 ng/dL (0.76-1.46); MAGNESIUM 2.4 mg/dL (1.8-2.4); PHOSPHORUS 5.2 mg/dL (2.5-4.9); THYROID STIMULATING HORMONE 14.8 uIU/mL (0.34-3.74)
[2020-07-09 16:15] VITALS: BP 139/84
[2020-07-09] MEDS: DONEPEZIL 10 MG TAB PO SCH (21:00)
[2020-07-09] MEDS: QUEtiapine FUMARATE 25 MG TAB PO SCH (21:00)
[2020-07-09] MEDS: SERTRALINE 50 MG TAB PO SCH (21:00)
[2020-07-09] MEDS: DIVALPROEX SPRINKLES 125 MG CAPDR PO SCH (21:00)
[2020-07-09 23:02] VITALS: BP 125/63
[2020-07-10] MEDS: ZOLPIDEM 5 MG TAB PO PRN (03:01)
[2020-07-10 04:00] VITALS: BP 120/55
[2020-07-10] MEDS: DEXT 5% /NACL 0.9% 1,000 ML IV SCH ×2 (04:45→13:24)
[2020-07-10 08:00] VITALS: BP 155/67
[2020-07-10 08:08] LABS: T4 (THYROXINE) 5.9 ug/dL (4.5-12.0)
[2020-07-10 08:34] LABS: BASOPHILS % (AUTO) 0.9 % (0.0-2.0); EOSINOPHILS # (AUTO) 0.1 K/uL (0-0.4); EOSINOPHILS % (AUTO) 2.8 % (0.0-4.0); HEMATOCRIT 36.1 % (36-48); HEMOGLOBIN 11.9 g/dL (12.0-16.0); LYMPHOCYTES # (AUTO) 1.4 K/uL (2.5-16.5); LYMPHOCYTES % (AUTO) 28.6 % (20.5-51.1); MEAN CORPUSCULAR HEMOGLOBIN 31 pg (27-31); MEAN CORPUSCULAR HGB CONC 33 g/dL (33-37); MEAN CORPUSCULAR VOLUME 92.6 fL (80-94); MONOCYTES # (AUTO) 0.5 K/uL (0.8-1.0); MONOCYTES % (AUTO) 11.2 % (1.7-9.3); NEUTROPHILS # (AUTO) 2.7 K/uL (1.8-7.7); NEUTROPHILS % (AUTO) 56.5 % (42.2-75.2); PLATELET COUNT (AUTO) 173 K/uL (140-450); RED CELL DISTRIBUTION WIDTH 15.4 % (11.6-13.7); WHITE BLOOD COUNT (AUTO) 4.9 K/uL (4.8-10.8)
[2020-07-10 08:49] LABS: ANION GAP 12.3 (8-16); CARBON DIOXIDE 25.7 mmol/L (21-32); CHLORIDE 106 mmol/L (98-107); CREATININE 0.8 mg/dL (0.6-1.3); GLUCOSE 107 mg/dL (74-106); SODIUM SERUM 140 mmol/L (136-145); UREA NITROGEN, BLOOD 30 mg/dL (7-18)
[2020-07-10] MEDS: DIVALPROEX SPRINKLES 125 MG CAPDR PO SCH ×2 (10:02→21:25)
[2020-07-10] MEDS: PANTOPRAZOLE 40 MG TABEC PO SCH (10:02)
[2020-07-10] MEDS: QUEtiapine FUMARATE 25 MG TAB PO SCH ×2 (10:02→21:26)
[2020-07-10] MEDS ORDERED: LORazepam 2 MG/ML VIAL IVP PRN (15:40)
[2020-07-10 16:00] VITALS: BP 146/65
[2020-07-10 20:00] VITALS: BP 159/94
[2020-07-10] MEDS: DONEPEZIL 10 MG TAB PO SCH (21:25)
[2020-07-10] MEDS: SERTRALINE 50 MG TAB PO SCH (21:26)
[2020-07-11 04:00] VITALS: BP 152/66
[2020-07-11 06:47] LABS: APPEARANCE,URINE CLEAR (CLEAR); BILIRUBIN,URINE NEGATIVE (NEGATIVE); BLOOD, URINE NEGATIVE (NEGATIVE); COLOR,URINE YELLOW (YELLOW); LEUKOCYTE ESTERASE ,URINE NEGATIVE (NEGATIVE); NITRITE, URINE NEGATIVE (NEGATIVE); UGLUCOSE NEGATIVE (NEGATIVE)
[2020-07-11 08:00] VITALS: BP 139/64
[2020-07-11] MEDS: LORazepam 2 MG/ML VIAL IM/IVP PRN ×2 (08:03→15:08)
[2020-07-11 08:29] LABS: EOSINOPHILS # (AUTO) 0.5 K/uL (0-0.4); EOSINOPHILS % (AUTO) 11.1 % (0.0-4.0); HEMOGLOBIN 11.6 g/dL (12.0-16.0); LYMPHOCYTES # (AUTO) 1.6 K/uL (2.5-16.5); LYMPHOCYTES % (AUTO) 38.9 % (20.5-51.1); MEAN CORPUSCULAR HEMOGLOBIN 31 pg (27-31); MEAN CORPUSCULAR HGB CONC 33 g/dL (33-37); MEAN CORPUSCULAR VOLUME 93.2 fL (80-94); MONOCYTES # (AUTO) 0.6 K/uL (0.8-1.0); MONOCYTES % (AUTO) 13.9 % (1.7-9.3); NEUTROPHILS # (AUTO) 1.5 K/uL (1.8-7.7); NEUTROPHILS % (AUTO) 36.1 % (42.2-75.2); PLATELET COUNT (AUTO) 158 K/uL (140-450); RED BLOOD CELL COUNT(AUTO) 3.75 MIL/uL (4.20-5.40); RED CELL DISTRIBUTION WIDTH 15.1 % (11.6-13.7); WHITE BLOOD COUNT (AUTO) 4.1 K/uL (4.8-10.8)
[2020-07-11] MEDS: PANTOPRAZOLE 40 MG TABEC PO SCH (08:50)
[2020-07-11] MEDS: DIVALPROEX SPRINKLES 125 MG CAPDR PO SCH ×2 (08:50→22:30)
[2020-07-11] MEDS: QUEtiapine FUMARATE 25 MG TAB PO SCH ×2 (08:50→22:35)
[2020-07-11 09:52] LABS: ANION GAP 12.1 (8-16); CARBON DIOXIDE 26.5 mmol/L (21-32); CHLORIDE 107 mmol/L (98-107); CREATININE 0.7 mg/dL (0.6-1.3); GLUCOSE 109 mg/dL (74-106); POTASSIUM 3.6 mmol/L (3.5-5.1); SODIUM SERUM 142 mmol/L (136-145); UREA NITROGEN, BLOOD 15 mg/dL (7-18)
[2020-07-11 09:59] LABS: MAGNESIUM 2.2 mg/dL (1.8-2.4); PHOSPHORUS 3.3 mg/dL (2.5-4.9)
[2020-07-11] MEDS ORDERED: ACETAMINOPHEN 325 MG TAB PO PRN (12:50)
[2020-07-11] MEDS: DEXT 5% /NACL 0.9% 1,000 ML IV SCH (14:58)
[2020-07-11 16:00] VITALS: BP 151/67
[2020-07-11 20:00] VITALS: BP 149/58
[2020-07-11] MEDS ORDERED: SERTRALINE 50 MG TAB PO SCH (21:00)
[2020-07-11] MEDS ORDERED: DONEPEZIL 10 MG TAB PO SCH (21:00)
[2020-07-11] MEDS ORDERED: DIVALPROEX SPRINKLES 125 MG CAPDR PO SCH (21:00)
[2020-07-11] MEDS ORDERED: QUEtiapine FUMARATE 25 MG TAB PO SCH (21:00)
[2020-07-11] MEDS: APIXABAN 2.5 MG TAB PO SCH (22:32)
[2020-07-11] MEDS: MEMANTINE 10 MG TAB PO SCH (22:33)
[2020-07-11] MEDS: FAMOTIDINE 20 MG TAB PO SCH (22:34)
[2020-07-11] MEDS: SERTRALINE 50 MG TAB PO SCH (22:35)
[2020-07-11] MEDS: DONEPEZIL 10 MG TAB PO SCH (22:37)
[2020-07-12 04:00] VITALS: BP 153/70
[2020-07-12] MEDS: LORazepam 2 MG/ML VIAL IM/IVP PRN ×2 (06:12→16:59)
[2020-07-12] MEDS: LEVOTHYROXINE 0.112 MG TAB PO SCH (06:13)
[2020-07-12] MEDS: DIVALPROEX SPRINKLES 125 MG CAPDR PO SCH ×2 (07:11→21:08)
[2020-07-12] MEDS: DEXT 5% /NACL 0.9% 1,000 ML IV SCH (07:13)
[2020-07-12] MEDS: QUEtiapine FUMARATE 25 MG TAB PO SCH ×2 (08:56→21:08)
[2020-07-12] MEDS: PANTOPRAZOLE 40 MG TABEC PO SCH (08:56)
[2020-07-12] MEDS: MEMANTINE 10 MG TAB PO SCH ×2 (08:56→21:10)
[2020-07-12] MEDS: APIXABAN 2.5 MG TAB PO SCH ×2 (08:59→21:12)
[2020-07-12] MEDS: lisinopriL 10 MG TAB PO SCH (09:04)
[2020-07-12] MEDS: DOCUSATE SOD/SENNA 50/8.6 MG 1 TAB PO SCH (09:04)
[2020-07-12 09:50] LABS: BASOPHILS # (AUTO) 0.1 K/uL (0.00-0.22); BASOPHILS % (AUTO) 1.2 % (0.0-2.0); EOSINOPHILS # (AUTO) 0.2 K/uL (0-0.4); EOSINOPHILS % (AUTO) 4.8 % (0.0-4.0); HEMATOCRIT 37.3 % (36-48); HEMOGLOBIN 12.2 g/dL (12.0-16.0); LYMPHOCYTES # (AUTO) 1.1 K/uL (2.5-16.5); LYMPHOCYTES % (AUTO) 24.1 % (20.5-51.1); MEAN CORPUSCULAR HEMOGLOBIN 31 pg (27-31); MEAN CORPUSCULAR HGB CONC 33 g/dL (33-37); MEAN CORPUSCULAR VOLUME 93.7 fL (80-94); MONOCYTES # (AUTO) 0.4 K/uL (0.8-1.0); MONOCYTES % (AUTO) 9.2 % (1.7-9.3); NEUTROPHILS # (AUTO) 2.9 K/uL (1.8-7.7); NEUTROPHILS % (AUTO) 60.7 % (42.2-75.2); PLATELET COUNT (AUTO) 188 K/uL (140-450); RED BLOOD CELL COUNT(AUTO) 3.99 MIL/uL (4.20-5.40); WHITE BLOOD COUNT (AUTO) 4.8 K/uL (4.8-10.8)
[2020-07-12 10:04] LABS: CARBON DIOXIDE 28.9 mmol/L (21-32); CHLORIDE 104 mmol/L (98-107); CREATININE 0.8 mg/dL (0.6-1.3); GLUCOSE 122 mg/dL (74-106); POTASSIUM 3.9 mmol/L (3.5-5.1); SODIUM SERUM 138 mmol/L (136-145); UREA NITROGEN, BLOOD 18 mg/dL (7-18)
[2020-07-12 12:36] VITALS: BP 140/64
[2020-07-12 16:00] VITALS: BP 120/64
[2020-07-12 20:00] VITALS: BP 120/64
[2020-07-12] MEDS: DONEPEZIL 10 MG TAB PO SCH (21:07)
[2020-07-12] MEDS: FAMOTIDINE 20 MG TAB PO SCH (21:08)
[2020-07-12] MEDS: ZOLPIDEM 5 MG TAB PO PRN (21:09)
[2020-07-12] MEDS: SERTRALINE 50 MG TAB PO SCH (21:10)
[2020-07-13] MEDS: LEVOTHYROXINE 0.112 MG TAB PO SCH (06:05)
[2020-07-13 08:00] VITALS: BP 144/7
[2020-07-13] MEDS: DIVALPROEX SPRINKLES 125 MG CAPDR PO SCH ×2 (09:22→22:22)
[2020-07-13] MEDS: MEMANTINE 10 MG TAB PO SCH ×2 (09:23→22:21)
[2020-07-13] MEDS: lisinopriL 10 MG TAB PO SCH (09:24)
[2020-07-13] MEDS: DOCUSATE SOD/SENNA 50/8.6 MG 1 TAB PO SCH (09:24)
[2020-07-13] MEDS: PANTOPRAZOLE 40 MG TABEC PO SCH (09:24)
[2020-07-13] MEDS: QUEtiapine FUMARATE 25 MG TAB PO SCH ×2 (09:24→22:24)
[2020-07-13] MEDS: APIXABAN 2.5 MG TAB PO SCH ×2 (09:25→22:22)
[2020-07-13] MEDS: DEXT 5% /NACL 0.9% 1,000 ML IV SCH ×2 (10:20→16:22)
[2020-07-13] MEDS: LORazepam 2 MG/ML VIAL IM/IVP PRN (15:20)
[2020-07-13 20:00] VITALS: BP 144/49
[2020-07-13] MEDS: DONEPEZIL 10 MG TAB PO SCH (22:23)
[2020-07-13] MEDS: SERTRALINE 50 MG TAB PO SCH (22:23)
[2020-07-13] MEDS: FAMOTIDINE 20 MG TAB PO SCH (22:24)
[2020-07-14 04:00] VITALS: BP 95/50
[2020-07-14] MEDS: LEVOTHYROXINE 0.112 MG TAB PO SCH (06:20)
[2020-07-14] MEDS: DEXT 5% /NACL 0.9% 1,000 ML IV SCH (06:30)
[2020-07-14] MEDS: lisinopriL 10 MG TAB PO SCH (09:00)
[2020-07-14] MEDS: DIVALPROEX SPRINKLES 125 MG CAPDR PO SCH ×2 (09:22→21:03)
[2020-07-14] MEDS: DOCUSATE SOD/SENNA 50/8.6 MG 1 TAB PO SCH (09:23)
[2020-07-14] MEDS: MEMANTINE 10 MG TAB PO SCH ×2 (09:23→21:03)
[2020-07-14] MEDS: APIXABAN 2.5 MG TAB PO SCH ×2 (09:26→21:05)
[2020-07-14] MEDS: QUEtiapine FUMARATE 25 MG TAB PO SCH ×2 (09:33→21:03)
[2020-07-14] MEDS: PANTOPRAZOLE 40 MG TABEC PO SCH (09:33)
[2020-07-14 12:00] VITALS: BP 106/35
[2020-07-14] MEDS ORDERED: TUBERCULIN 5 TU/0.1 ML VIAL ID SCH (16:30)
[2020-07-14 20:00] VITALS: BP 154/55
[2020-07-14] MEDS: FAMOTIDINE 20 MG TAB PO SCH (21:03)
[2020-07-14] MEDS: DONEPEZIL 10 MG TAB PO SCH (21:03)
[2020-07-14] MEDS: SERTRALINE 50 MG TAB PO SCH (21:04)
[2020-07-15] MEDS: DEXT 5% /NACL 0.9% 1,000 ML IV SCH ×2 (01:25→18:05)
[2020-07-15 04:00] VITALS: BP 153/57
[2020-07-15] MEDS: LEVOTHYROXINE 0.112 MG TAB PO SCH (06:30)
[2020-07-15] MEDS: PANTOPRAZOLE 40 MG TABEC PO SCH (09:40)
[2020-07-15] MEDS: QUEtiapine FUMARATE 25 MG TAB PO SCH ×2 (09:40→20:01)
[2020-07-15] MEDS: DOCUSATE SOD/SENNA 50/8.6 MG 1 TAB PO SCH (09:42)
[2020-07-15] MEDS: DIVALPROEX SPRINKLES 125 MG CAPDR PO SCH ×2 (09:42→20:03)
[2020-07-15] MEDS: MEMANTINE 10 MG TAB PO SCH ×2 (09:42→20:02)
[2020-07-15] MEDS: APIXABAN 2.5 MG TAB PO SCH ×2 (09:42→20:03)
[2020-07-15] MEDS: lisinopriL 10 MG TAB PO SCH (09:43)
[2020-07-15 12:00] VITALS: BP 167/77
[2020-07-15 16:00] VITALS: BP 150/55
[2020-07-15 20:00] VITALS: BP 152/67
[2020-07-15] MEDS: SERTRALINE 50 MG TAB PO SCH (20:01)
[2020-07-15] MEDS: FAMOTIDINE 20 MG TAB PO SCH (20:02)
[2020-07-15] MEDS: DONEPEZIL 10 MG TAB PO SCH (20:03)
[2020-07-16 04:00] VITALS: BP 145/85
[2020-07-16] MEDS: LEVOTHYROXINE 0.112 MG TAB PO SCH (06:30)
[2020-07-16] MEDS: DIVALPROEX SPRINKLES 125 MG CAPDR PO SCH ×2 (10:07→20:33)
[2020-07-16] MEDS: DOCUSATE SOD/SENNA 50/8.6 MG 1 TAB PO SCH (10:07)
[2020-07-16] MEDS: PANTOPRAZOLE 40 MG TABEC PO SCH (10:08)
[2020-07-16] MEDS: QUEtiapine FUMARATE 25 MG TAB PO SCH ×2 (10:08→20:33)
[2020-07-16] MEDS: APIXABAN 2.5 MG TAB PO SCH ×2 (10:09→20:34)
[2020-07-16] MEDS: MEMANTINE 10 MG TAB PO SCH ×2 (10:10→20:33)
[2020-07-16] MEDS: lisinopriL 10 MG TAB PO SCH (10:11)
[2020-07-16] MEDS: DEXT 5% /NACL 0.9% 1,000 ML IV SCH (10:45)
[2020-07-16] MEDS ORDERED: TUBERCULIN 5 TU/0.1 ML VIAL ID SCH (11:05)
[2020-07-16 12:00] VITALS: BP 132/50
[2020-07-16 16:00] VITALS: BP 103/42
[2020-07-16 20:00] VITALS: BP 123/45
[2020-07-16] MEDS: FAMOTIDINE 20 MG TAB PO SCH (20:32)
[2020-07-16] MEDS: DONEPEZIL 10 MG TAB PO SCH (20:33)
[2020-07-16] MEDS: SERTRALINE 50 MG TAB PO SCH (20:34)
[2020-07-17] MEDS: DEXT 5% /NACL 0.9% 1,000 ML IV SCH ×2 (03:25→20:05)
[2020-07-17 04:00] VITALS: BP 110/55
[2020-07-17] MEDS: LEVOTHYROXINE 0.112 MG TAB PO SCH (06:06)
[2020-07-17] MEDS: DIVALPROEX SPRINKLES 125 MG CAPDR PO SCH ×2 (08:43→20:40)
[2020-07-17] MEDS: MEMANTINE 10 MG TAB PO SCH ×2 (08:44→20:40)
[2020-07-17] MEDS: PANTOPRAZOLE 40 MG TABEC PO SCH (08:44)
[2020-07-17] MEDS: QUEtiapine FUMARATE 25 MG TAB PO SCH ×2 (08:44→20:40)
[2020-07-17] MEDS: DOCUSATE SOD/SENNA 50/8.6 MG 1 TAB PO SCH (08:45)
[2020-07-17] MEDS: lisinopriL 10 MG TAB PO SCH (08:45)
[2020-07-17] MEDS: APIXABAN 2.5 MG TAB PO SCH ×2 (08:52→20:41)
[2020-07-17 11:13] VITALS: BP 122/42
[2020-07-17 15:47] VITALS: BP 133/58
[2020-07-17 20:00] VITALS: BP 145/95
[2020-07-17] MEDS: FAMOTIDINE 20 MG TAB PO SCH (20:40)
[2020-07-17] MEDS: DONEPEZIL 10 MG TAB PO SCH (20:40)
[2020-07-17] MEDS: SERTRALINE 50 MG TAB PO SCH (20:41)
[2020-07-17] MEDS: LORazepam 2 MG/ML VIAL IM/IVP PRN (23:01)
[2020-07-18 04:00] VITALS: BP 132/61
[2020-07-18] MEDS: LEVOTHYROXINE 0.112 MG TAB PO SCH (06:14)
[2020-07-18 08:00] VITALS: BP 127/50
[2020-07-18] MEDS: DOCUSATE SOD/SENNA 50/8.6 MG 1 TAB PO SCH (08:30)
[2020-07-18] MEDS: DIVALPROEX SPRINKLES 125 MG CAPDR PO SCH (08:30)
[2020-07-18] MEDS: PANTOPRAZOLE 40 MG TABEC PO SCH (08:30)
[2020-07-18] MEDS: QUEtiapine FUMARATE 25 MG TAB PO SCH (08:31)
[2020-07-18] MEDS: MEMANTINE 10 MG TAB PO SCH (08:31)
[2020-07-18] MEDS: APIXABAN 2.5 MG TAB PO SCH (08:33)
[2020-07-18] MEDS: lisinopriL 10 MG TAB PO SCH (08:33)
[2020-07-18] MEDS: DEXT 5% /NACL 0.9% 1,000 ML IV SCH (12:45)
== END 2020-07-18 19:15 | disposition home or self-care (01) | DRG 640 ==
LOC: MED 19:02 → MTU 07-09 11:04 → EEVIPCON 07-09 11:04
PROVIDERS: ADMIT Family Medicine; ATTEND Family Medicine
DX: E86.0 Dehydration (principal); G93.41 Metabolic encephalopathy; E89.0 Postprocedural hypothyroidism; G30.9 Alzheimer's disease, unspecified; I10 Essential (primary) hypertension; F31.9 Bipolar disorder, unspecified; F20.9 Schizophrenia, unspecified; F02.80 Dementia in other diseases classified elsewhere, unspecified severity, without behavioral disturbance, psychotic disturbance, mood disturbance, and anxiety; D64.9 Anemia, unspecified; R62.7 Adult failure to thrive; K21.9 Gastro-esophageal reflux disease without esophagitis; Z20.822 Contact with and (suspected) exposure to COVID-19; Z90.710 Acquired absence of both cervix and uterus; Z68.25 Body mass index [BMI] 25.0-25.9, adult; Z79.899 Other long term (current) drug therapy; Z88.8 Allergy status to other drugs, medicaments and biological substances
CPT/HCPCS: 36415; 71045; 80048; 80053; 80305; 81003; 82150; 83036; 83690; 83735; 83880; 84100; 84436; 84439; 84443; 84479; 84484; 85025; 85610; 85730; 87081; 93005; 96372; 97110; 97112; 97116; 97161-GP; 97530; 99285; G0480; G0482; J1200; J2060; J3486; J7042; U0003